=== PATIENT | female | born 1945 | race Caucasian/White ===

== ENCOUNTER → 2020-01-31 20:23 | Outpatient (CLI) | payer SELFPAY, OTHER | PROVIDERS: PCP Family Medicine; Referring Provider Psychiatry & Neurology Sleep Medicine; Visit Provider Psychiatry & Neurology Sleep Medicine | DX: G47.33 Obstructive sleep apnea (adult) (pediatric) (principal) | CPT/HCPCS: 95810 ==

== ENCOUNTER 2020-04-17 16:10 | Inpatient (IN) | payer OTHER, SELFPAY ==
[2020-04-17] VITALS (9 sets, daily range): BP systolic 149–164; BP diastolic 53–61; PULSE 73–84; RESP 16–23; TEMP 36.3–37.1; O2SAT 94–99; BMI 31.6; BMI 32.2
--- NOTE | 2020-04-17 16:47 | EKG12_ITS ---
Test Reason : Blood Pressure : / mmHG Vent. Rate : 072 BPM Atrial Rate : 072 BPM P-R Int : 194 ms QRS Dur : 088 ms QT Int : 434 ms P-R-T Axes : 070 045 091 degrees QTc Int : 475 ms Normal sinus rhythm Nonspecific ST and T wave abnormality Abnormal ECG Confirmed by ALONA DICKERSON, NATIVIDAD ([id number]), associate editor KLARISSA SHELL ([id number]) on 04/19/2020 2:08:32 PM Referred By: YANICK Confirmed By:BEN SAGE MD
[2020-04-17] MEDS: Ondansetron 4 MG/2 ML Vial IV (17:14)
[2020-04-17 17:23] LABS: Absolute Lymphocyte Count 0.43 X10^3/uL (0.83-4.51); Basophil# 0.02 X10^3/uL; Basophil% 0.4 % (0-1); Eosinophil# 0.15 X10^3/uL; Eosinophils% 2.9 % (0-5); Hematocrit 26.5 % (37-47); Hemoglobin 7.7 g/dL (12.0-15.0); Lymphocyte # 0.43 X10^3/ul (4.0); Lymphocyte % 8.2 % (19-41); Mean Corp Hgb Conc 29.1 g/dL (32-36); Mean Corpuscular Hgb 25.2 pg (27.0-32.0); Mean Corpuscular Volume 86.6 fL (81-99); Mean Platelet Vol. 9.8 fl (6.2-12.0); Monocyte# 0.67 X10^3/uL; Monocyte% 12.7 % (0-10); NRBC Flagged by Analyzer 0 % (0-5); Neutrophil # 3.97 X10^3/uL (2.7-7.7); Neutrophil % 75.4 % (47-70); POSITIVE DIFFERENTIAL YES; Platelet Count 294 K/mm3 (150-450); RBC Distribution Width CV 14.4 % (11.6-14.6); RBC Distribution Width SD 45.5 fl (35.1-43.9); Red Blood Count 3.06 M/mm3 (4.2-5.4); White Blood Count 5.3 K/mm3 (4.4-11.0)
--- NOTE | 2020-04-17 17:30 | RAD_ITS ---
STUDY: X-RAY CHEST REASON FOR EXAM: Female, 74 years old. SOB FOR WEEKS,N/V. TECHNIQUE: AP portable COMPARISON: 04/26/2012 FINDINGS: Lungs are hyperinflated and there is prominence of interstitial markings most pronounced in the lower lobes.. There is no demonstrated pleural abnormality. Heart is enlarged. Normal mediastinum and lex. Normal visualized pulmonary arteries. Mildly calcified aortic arch and descending thoracic aorta. Dorsal spine and shoulders demonstrate degenerative change.. Normal visualized ribs, and clavicles.. There is no demonstrated abnormality of the visualized soft tissue structures of the upper abdomen. RAD/Chest 1 View (Portable) IMPRESSION: COPD and superimposed ASHD. Cannot definitively exclude coexisting inflammatory disease in the lower lobes. Clinical correlation recommended Electronically Signed: Terrence Encarnacion MD at 18:06 EST , Service support ,
[2020-04-17 17:31] LABS: Differential Indicated SCAN CRITERIA MET
[2020-04-17 17:38] LABS: Mucous, Urine 0 SEEN /hpf (<or=2+); Red Blood Cells-Urine 0 SEEN /hpf (0-5)
[2020-04-17 17:44] LABS: AST(SGOT) 12 U/L (15-37); Alanine Aminotransfer ALT/SGPT 14 U/L (13-56); Albumin, Serum 3.3 g/dL (3.2-5.0); Alkaline Phosphatase 67 U/L (45-117); Anion Gap 8 (5-15); BUN 36 mg/dL (7-18); BUN/Creat Ratio 14.3 RATIO (10-20); Calcium,Total 9.3 mg/dL (8.5-10.1); Chloride 109 mmol/L (98-107); Creatinine, Serum 2.51 mg/dL (0.55-1.02); EST Glomerular Filtration Rate 20 mL/min (>60); Est Glom Filt Rate - Afr Amer 24 mL/min (>60); Estimated Creatinine Clearance 18.97 ml/min; Globulin 3.3 g/dL (2.2-4.2); Glucose 122 mg/dL (74-106); Potassium 3.4 mmol/L (3.5-5.1); Protein, Total 6.6 g/dL (6.4-8.2); Sodium Level 140 mmol/L (136-145)
[2020-04-17 18:05] LABS: Color, Urine Yellow (Yellow); Glucose, Dipstick Normal (Normal); Ketone-Dipstick Negative (Negative); Leukocyte Esterase-Dipstick 500 /ul (Negative); Nitrite-Dipstick Negative (Negative); Occult Blood-Urine 10 /ul (Negative); Protein-Dipstick 100 mg/dl (Negative); Urine Bilirubin Dipstick Negative (Negative); Urine Clarity Sl. Cloudy (Clear); Urine Urobilinogen Normal (Normal)
[2020-04-17 18:29] LABS: Bacteria 2+ /hpf (None Seen); Squamous Epithelial Cells - UA 0-5 SEEN /hpf (5-10); White Blood Cells 50-100 SEEN /hpf (0-5)
[2020-04-17 18:32] LABS: Anisocytosis 2+; Crenated RBC 2+; Hypochromasia 1+; Ovalocyte 1+
[2020-04-17 18:33] LABS: Platelet Estimate ADEQUATE (ADEQ); Schistocytes 1+
[2020-04-17] MEDS: Ceftriaxone 1 GM/50 ML BAG IV (19:06)
--- NOTE | 2020-04-17 19:07 | ED.VISSUMM ---
- ER Visit Summary Date of Service: 04/17/20 Chief Complaint: Shortness of breath, generalized weakness History of Present Illness: The patient is a 74 F presenting with shortness of breath, generalized weakness. Patient states this has been ongoing for the past several weeks but progressively worsening. She states that she has been nauseated with generalized weakness and fatigue. She states she started to feel as she did before her kidney transplant in 2009. She was advised by her casting inspector to come to the ED. She also has a history of A. fib and is not on anticoagulants. She denies chest pain. She has shortness of breath, nausea, vomiting, diarrhea. She denies blood in her stool. Denies fever. Denies other complaints. Physical Examination: Vitals are stable. Patient is afebrile. Alert no acute distress. HEENT exam is unremarkable. Neck is supple. Lungs are clear and equal bilaterally. Heart is regular rate and rhythm. Abdomen is soft nontender nondistended. Extremities are unremarkable. Skin is warm and dry. Pallor No focal neurologic deficit. Remainder of exam is unremarkable. ] Emergency Department Course and Treatment: EKG is sinus rhythm with no acute ischemic changes. Chest x-ray shows COPD, ASHD. CBC shows hemoglobin 7.7. Chemistries show glucose 122, BUN 36, creatinine 2.51. Urinalysis shows 50-100 white blood cells, 2+ bacteria. Troponin is negative. Urine culture was sent. Covid is negative. She is given Rocephin IV. She states her previous creatinine has been 1.5 a few months ago. Discussed with the hospitalist for admission. Disposition: Admission Impression: Acute on chronic kidney injury, UTI, anemia This note was generated with [employer] dictation software. It may contain incorrect words, spelling, and punctuation that were not noted in review of the chart prior to signing ED Disposition - Plan for ED Patient: Referrals: Hamilton Armstrong MD [Primary Care Provider] -
[2020-04-17] MEDS: 0.9% Normal Saline 1,000 ML 75 ML IV (20:45)
--- NOTE | 2020-04-17 20:56 | PCM.HP.STD ---
Problem List (1) Generalized weakness Status: Acute (2) Shortness of breath Status: Acute History of Present Illness Date of Admission: 04/17/20 Chief Complaint: Generalized weakness, shortness of breath The patient is a 74 year old F seen in the emergency room at [facility] with a chief complaint of shortness of breath and generalized weakness, this is been going on for the past several weeks but she feels that she is so tired she cannot do activities of daily living. Patient had a history of kidney transplant in 2009, she follows up with a operating room manager on a chronic basis. Patient also has a history of iron deficiency anemia and has had blood transfusions in the past. She follows up with a oncologist (Dr. Arroyo) regarding her anemia. Work-up in the emergency room included an EKG which showed her to be in sinus rhythm with no ischemic changes, chest x-ray was read out as showing possible COPD and atherosclerotic heart disease, CBC was remarkable for hemoglobin of 7.7, chemistry showed a glucose of 122, BUN of 36, creatinine of 2.51. Urinalysis showed 50-100 white blood cells and +2 bacteria. COVID-19 test was negative, troponin was unremarkable. Patient's pulse ox on room air was 98. [facility] for acute cystitis, anemia, and generalized weakness. I also believe that she has a component of acute kidney injury-patient takes a diuretic at home-I will administer fluids at a low rate while she is here. Patient will be given Rocephin for her cystitis. Patient will also need a blood transfusion of 2 units to see if this helps and I will give her an infusion of Venofer. Finally, patient will be seen by PT and OT Past Medical History Allergies No Known Allergies Allergy (Verified 04/17/20 20:12) Home Medications: Ambulatory Orders Medication Instructions Recorded Magnesium Oxide [Mag-Ox 400] 400 mg PO DAILY 01/19/14 Mycophenolate Mofetil [Cellcept] 750 mg PO BID 01/19/14 Simvastatin [Zocor] 20 mg PO QHS 01/19/14 Amlodipine [Norvasc] 10 mg PO DAILY 04/17/20 Chlorthalidone 25 mg PO DAILY 04/17/20 Cholecalciferol (Vitamin D3) 2,000 unit PO DAILY 04/17/20 [Vitamin D3] Ferrous Sulfate 325 mg PO DAILY 04/17/20 Metoprolol Tartrate 12.5 mg PO BID 04/17/20 Potassium Chloride [Klor-Con M10] 10 meq PO DAILY 04/17/20 Prednisone 5 mg PO DAILY 04/17/20 Sulfamethoxazole/Trimethoprim 1 tab PO DAILY 04/17/20 [Sulfamethoxazole-Tmp Ss Tablet] Tacrolimus 0.5 mg PO DAILY 04/17/20 Tacrolimus 1 mg PO DAILY 04/17/20 Surgical History: cataract, - - Kidney transplantation 2009 Psychiatric History: No pertinent psych hx [employer] History: No pertinent [employer] history Lives: Spouse/ Significant Other Smoking Status: Never smoker Tobacco Use: Non-smoker Alcohol: None Drugs: None - *Family History Maternal History Items: Cancer, Renal Disease Paternal History Items: Stroke, - Review of Systems Constitutional: Reports: Weakness, Fatigue. Denies: Anorexia, Chills, Fever, Night Sweats, Weight Change Eyes: Denies: Cataracts, Conjunctivae Inflammation, Double vision HEENT: Denies: Difficulty Swallowing, Dysphasia, Ear Pain, Eye Pain, Hearing Changes, Nasal bleeding, Nasal Congestion, Post Nasal Drip Cardiovascular: Denies: Chest Pain, Claudication, Chest Pressure, Chest Tightness, Edema, Palpitations Respiratory: Reports: Shortness of Breath, Shortness of breath upon exertion. Denies: Cough, Hemoptysis, Pleuritic Pain, Shortness of breath at rest, Sputum production, Wheezing Gastrointestinal: Denies: Abdominal Pain, Constipation, Diarrhea, Dyspepsia, Hematemesis, Hematochezia, Nausea, Melena, Vomiting Genitourinary: Denies: Dysuria, Frequency, Hematuria, Hesitancy, Nocturia, Retention, Urgency Musculoskeletal: Denies: Foot Pain, Hand Pain, Joint Pain, Joint stiffness, Joint swelling, Joint Tenderness, Leg Pain Skin: Denies: Dryness, Jaundice, Pruritis, Rash Neurological: Denies: Blurred vision, Double vision, Change in Speech, Slurred speech, Difficulty swallowing, Focal weakness, Headaches, Incoordination, Numbness, Tingling Psychiatric: Denies: Anxiety, Depression, Homicidal Ideations, Suicidal Ideations Endocrine: Denies: Change in Body Habitus, Heat/ Cold Intolerance, Polydipsia, Polyuria Hematologic/ Lymphatic: Reports: Anemia, Hx of blood transfusion. Denies: Adenopathy, Easy Bruising, Easy Bleeding, Petechiae, Purpura VTE Information - Inpt Only VTE Present on Admission: No VTE Mechan Device Prophylaxis: None VTE Pharm Prophylaxis ordered?: No Reason prophylaxis not ordered:: Treatment Not Indicated - Patient is in observation status and is expected to be discharged within 24 hours - Physical Exam Vitals/I&O's: Vital Signs Temp Pulse Resp BP Pulse Ox 98.6 F 79 18 164/59 H 98 04/17/20 20:11 04/17/20 20:11 04/17/20 20:11 04/17/20 20:11 04/17/20 20:11 Oxygen Delivery Method Room Air Weight: 90.5 kg Body Mass Index (BMI) 32.2 Intake and Output for Last 24 Hours 04/15/20 04/16/20 04/17/20 23:59 23:59 23:59 Intake Total 52.5 / 52.5 Balance 52.5 / 52.5 General: Alert, Oriented x3, Cooperative, No apparent distress, Well developed, Well nourished HEENT: Atraumatic, PERRLA, EOMI, Normocephalic Oral: Moist Mucosa Neck: Supple, No JVD, Negative Carotid Bruits, Trachea Midline, Thyroid Normal Size and Texture Lungs: Clear to auscultation, Normal air movement, No rhonchi, No wheeze, No rales Cardiovascular: Regular rate, Regular Rhythm, Normal S1, Normal S2, No murmurs, PMI Normal, No rub noted, No Gallop Abdomen: Bowel Sounds Present, Soft, Non Tender, Non-Distended, No hernias noted Extremities: No clubbing, No cyanosis, No edema, Capillary Refill Less than 3 Seconds Skin: No rashes, No breakdown Musculoskeletal: No Tenderness to Palpation of Joints or Extremities Neurological: Cranial nerves II-XII grossly intact, Neuro grossly intact, Sensory exam intact to light touch and pain, Coordination normal Psych/Mental Status: Normal Affect, Appropriate, Alert and oriented to time, place, person, mood and affect Microbiology Past 72 Hours 04/17/20 17:06 Mucosa - Nose SARS-CoV-2 Antigen (Rapid) - Final Laboratory Results 04/17/20 17:00: WBC 5.3, RBC 3.06 L, Hgb 7.7 L, Hct 26.5 L, MCV 86.6, MCH 25.2 L, MCHC 29.1 L, RDW Std Deviation 45.5 H, RDW Coeff of Rhys 14.4, Plt Count 294, MPV 9.8, Immature Gran % (Auto) 0.400, Neut % (Auto) 75.4 H, Lymph % (Auto) 8.2 L, [place] % (Auto) 12.7 H, Eos % (Auto) 2.9, Baso % (Auto) 0.4, Absolute Neuts (auto) 4.0, Absolute Lymphs (auto) 0.43 L, Nucleated RBC % 0, Differential Comment COMMENT, Platelet Estimate ADEQUATE, Hypochromasia 1+, Anisocytosis 2+, Ovalocytes 1+, Crenated Cell 2+, Schistocytes 1+ 04/17/20 17:00: Sodium 140, Potassium 3.4 L, Chloride 109 H, Carbon Dioxide 23.0, Anion Gap 8, BUN 36 H, Creatinine 2.51 H, Estim Creat Clear Calc 18.97, Est GFR (MDRD) Af Amer 24 L, Est GFR (MDRD) Non-Af 20 L, BUN/Creatinine Ratio 14.3, Glucose 122 H, Calcium 9.3, Total Bilirubin 0.30, AST 12 L, ALT 14, Alkaline Phosphatase 67, Troponin I < 0.015, Total Protein 6.6, Albumin 3.3, Globulin 3.3, Albumin/Globulin Ratio 1.0 04/17/20 17:05: Urine Color Yellow, Urine Clarity Sl. Cloudy, Urine pH 5.0, Ur Specific [place] 1.020, Urine Protein 100 H, Urine Glucose (UA) Normal, Urine Ketones Negative, Urine Occult Blood 10 H, Urine Nitrite Negative, Urine Bilirubin Negative, Urine Urobilinogen Normal, Ur Leukocyte Esterase 500 H, Urine RBC 0 SEEN, Urine WBC 50-100 SEEN, Ur Squamous Epith Cells 0-5 SEEN, Urine Bacteria 2+, Urine Mucus 0 SEEN 04/17/20 20:22: Blood Type Pending, Antibody Screen Pending, Crossmatch See Detail Current Medications Amlodipine Besylate (Amlodipine 10 Mg Tablet) 10 mg PO DAILY DAVID Atorvastatin Calcium (Atorvastatin Calcium 10 Mg Tablet) 10 mg PO QHS DAVID Sodium Chloride () 1,000 mls @ 75 mls/hr IV .[id number] DAVID Last Infusion: 04/17/20 20:47 Dose: 0 mls/hr Documented by: Ceftriaxone Sodium (Rocephin) 1 gm in 50 mls @ 100 mls/hr IV Q24 DAVID Sodium Chloride () 250 mls @ 15 mls/hr IV .[id number] PRN PRN Reason: Saline Flush Sodium Chloride () 250 mls @ 15 mls/hr IV .[id number] PRN PRN Reason: Additional IVPB Infusion Ferric Sodium Gluconate Complex 250 mg/ Sodium Chloride 270 mls @ 135 mls/hr IV X1 ONE Stop: 04/17/20 22:29 Last Admin: 04/17/20 20:45 Dose: 135 mls/hr Documented by: Metoprolol Tartrate (Metoprolol Tartrate 25 Mg Tablet) 12.5 mg PO BID DAVID Mycophenolate Mofetil (Mycophenolate Mofetil 250 Mg Capsule) 750 mg PO BID DAVID Ondansetron HCl (Ondansetron 4 Mg/2 Ml Vial) 4 mg IV Q8H PRN PRN PRN Reason: NAUSEA/VOMITING Prednisone (Prednisone 5 Mg Tablet) [facility] PO [facility]ILY[facility] Sodium Chloride (0.9% Saline Lock 10 Ml Syringe) 10 - 40 ml IV UD PRN PRN Reason: SALINE FLUSH Tacrolimus (Tacrolimus 0.5 Mg Capsule) 1 mg PO DAILY DAVID Tacrolimus (Tacrolimus 0.5 Mg Capsule) 0.5 mg PO QHS DAVID Trimethoprim/Sulfamethoxazole (Smz/Tmp Ds Tablet) 0.5 tablet PO DAILYCM [facility] Assessment/Plan All Active Problems Generalized weakness (Acute) Shortness of breath (Acute) #1 generalized weakness-secondary to anemia, probable acute kidney injury, patient will be placed in observation status on [facility], she will be seen by PT and OT #2 chronic anemia-iron deficient-patient will be transfused 2 units of packed red blood cells, she will be given an infusion of Venofer #3 acute cystitis-patient was placed on Rocephin, urine culture was obtained #4 acute kidney injury on a backdrop of chronic renal disease-again I have decided to take the patient off her diuretic which she takes at home (she states she uses it for leg swelling) and administered fluids at a low rate, BMP will be rechecked #5 hypokalemia-mild, potassium chloride will be given #6 essential hypertension patient will remain on her home meds, some of the patient's lower extremity edema is probably secondary to use of Norvasc. #7 hyperlipidemia-patient is on Zocor #8 past history of renal transplant 2009-patient is on antirejection medications and these will be continued. OBSV E&M: [id number] Initial observation care L3
[2020-04-17] MEDS: Mycophenolate Mofetil 250 MG Capsule 750 MG PO (21:08)
[2020-04-17] MEDS: Tacrolimus 0.5 MG Capsule PO (21:08)
[2020-04-17] MEDS: Atorvastatin Calcium 10 MG Tablet PO (21:09)
[2020-04-17] MEDS: Metoprolol Tartrate 25 MG Tablet 12.5 MG PO (21:12)
[2020-04-18] VITALS (16 sets, daily range): BP systolic 139–168; BP diastolic 51–82; PULSE 70–88; RESP 14–18; TEMP 36.8–37.4; O2SAT 92–97
[2020-04-18 08:00] LABS: Absolute Lymphocyte Count 0.48 X10^3/uL (0.83-4.51); Absolute Neutrophil Count 3.7 X10^3/uL (2.0-7.7); Basophil# 0.02 X10^3/uL; Basophil% 0.4 % (0-1); Eosinophil# 0.14 X10^3/uL; Eosinophils% 2.8 % (0-5); Hematocrit 30.8 % (37-47); Hemoglobin 9.2 g/dL (12.0-15.0); Lymphocyte # 0.48 X10^3/ul (4.0); Lymphocyte % 9.5 % (19-41); Mean Corp Hgb Conc 29.9 g/dL (32-36); Monocyte# 0.65 X10^3/uL; Monocyte% 12.9 % (0-10); NRBC Flagged by Analyzer 0 % (0-5); Neutrophil # 3.73 X10^3/uL (2.7-7.7); Neutrophil % 73.8 % (47-70); POSITIVE DIFFERENTIAL YES; Platelet Count 285 K/mm3 (150-450); RBC Distribution Width CV 14.1 % (11.6-14.6); RBC Distribution Width SD 44.9 fl (35.1-43.9); Red Blood Count 3.54 M/mm3 (4.2-5.4); White Blood Count 5.1 K/mm3 (4.4-11.0)
[2020-04-18 08:01] LABS: Differential Indicated SCAN CRITERIA MET
[2020-04-18 08:15] LABS: Anion Gap 8 (5-15); BUN 31 mg/dL (7-18); BUN/Creat Ratio 14.2 RATIO (10-20); Chloride 112 mmol/L (98-107); Creatinine, Serum 2.19 mg/dL (0.55-1.02); EST Glomerular Filtration Rate 23 mL/min (>60); Est Glom Filt Rate - Afr Amer 28 mL/min (>60); Estimated Creatinine Clearance 21.74 ml/min; Glucose 109 mg/dL (74-106); Potassium 3.7 mmol/L (3.5-5.1); Sodium Level 140 mmol/L (136-145)
[2020-04-18 08:26] LABS: Acanthocytes 1+; Hypochromasia 1+; Ovalocyte RARE; Platelet Estimate ADEQUATE (ADEQ)
[2020-04-18] MEDS: predniSONE 5 MG Tablet PO ×2 (08:52→16:40)
[2020-04-18] MEDS: Smz/Tmp Ds Tablet 0.5 TABLET PO (09:10)
[2020-04-18] MEDS: amLODIPine 10 MG Tablet PO (09:12)
[2020-04-18] MEDS: Mycophenolate Mofetil 250 MG Capsule 750 MG PO ×2 (09:17→21:19)
[2020-04-18] MEDS: Metoprolol Tartrate 25 MG Tablet 12.5 MG PO ×2 (09:18→21:20)
[2020-04-18] MEDS: Tacrolimus 0.5 MG Capsule 1 MG PO (09:22)
[2020-04-18] MEDS: Ceftriaxone 1 GM/50 ML BAG IV (10:59)
[2020-04-18] MEDS: predniSONE 10 MG Tablet PO (11:04)
--- NOTE | 2020-04-18 12:48 | PN_ITS ---
<Danitza Flores SHOWER ROOM ATTENDANT - Last Filed: 04/18/20 13:08> Patient Problems: Active and Suspected Problems Generalized weakness (Acute) Shortness of breath (Acute) Subjective: Patient seen and examined. States she continues to feel weak and reports nausea without emesis. Complains of left foot pain which she states feels like gout. Denies fever, chills. - Physical Exam Vitals/I&O's: Vital Signs Temp Pulse Resp BP Pulse Ox 98.2 F 73 14 152/57 H 95 04/18/20 08:27 04/18/20 09:18 04/18/20 08:27 04/18/20 08:27 04/18/20 08:27 Oxygen Delivery Method Room Air Weight: 199 lb 8.293 oz Body Mass Index (BMI) 32.2 Intake and Output for Last 24 Hours 04/16/20 04/17/20 04/18/20 23:59 23:59 23:59 Intake Total 322.5 / 522.5 1250 / 1250 Balance 322.5 / 522.5 1250 / 1250 General: Alert, Oriented x3, Cooperative HEENT: Atraumatic, PERRLA, EOMI, Normocephalic Neck: Supple, No JVD, Negative Carotid Bruits Lungs: Clear to auscultation, Normal air movement Cardiovascular: Regular rate, No murmurs Abdomen: Bowel Sounds Present, Soft, Non Tender, Non-Distended Extremities: No clubbing, No cyanosis, No edema, Capillary Refill Less than 3 Seconds Skin: No rashes, No breakdown Musculoskeletal: No Tenderness to Palpation of Joints or Extremities Neurological: Cranial nerves II-XII grossly intact, Neuro grossly intact Psych/Mental Status: Normal Affect, Appropriate Microbiology Past 72 Hours 04/17/20 17:00 Urine, Clean Catch Urine Culture - Preliminary GNR lactose electric meter setter 04/17/20 17:06 Mucosa - Nose SARS-CoV-2 Antigen (Rapid) - Final Laboratory Results 04/17/20 17:00: WBC 5.3, RBC 3.06 L, Hgb 7.7 L, Hct 26.5 L, MCV 86.6, MCH 25.2 L , MCHC 29.1 L, RDW Std Deviation 45.5 H, RDW Coeff of Rhys 14.4, Plt Count 294, MPV 9.8, Immature Gran % (Auto) 0.400, Neut % (Auto) 75.4 H, Lymph % (Auto) 8.2 L, Bent % (Auto) 12.7 H, Eos % (Auto) 2.9, Baso % (Auto) 0.4, Absolute Neuts (auto) 4.0, Absolute Lymphs (auto) 0.43 L, Nucleated RBC % 0, Differential Comment COMMENT, Platelet Estimate ADEQUATE, Hypochromasia 1+, Anisocytosis 2+, Ovalocytes 1+, Crenated Cell 2+, Schistocytes 1+ 04/17/20 17:00: Sodium 140, Potassium 3.4 L, Chloride 109 H, Carbon Dioxide 23.0, Anion Gap 8, BUN 36 H, Creatinine 2.51 H, Estim Creat Clear Calc 18.97, Est GFR (MDRD) Af Amer 24 L, Est GFR (MDRD) Non-Af 20 L, BUN/Creatinine Ratio 14.3, Glucose 122 H, Calcium 9.3, Total Bilirubin 0.30, AST 12 L, ALT 14, Alkaline Phosphatase 67, Troponin I < 0.015, Total Protein 6.6, Albumin 3.3, Globulin 3.3, Albumin/Globulin Ratio 1.0 04/17/20 17:05: Urine Color Yellow, Urine Clarity Sl. Cloudy, Urine pH 5.0, Ur Specific [place] 1.020, Urine Protein 100 H, Urine Glucose (UA) Normal, Urine Ketones Negative, Urine Occult Blood 10 H, Urine Nitrite Negative, Urine Bilirubin Negative, Urine Urobilinogen Normal, Ur Leukocyte Esterase 500 H, Urine RBC 0 SEEN, Urine WBC 50-100 SEEN, Ur Squamous Epith Cells 0-5 SEEN, Urine Bacteria 2+, Urine Mucus 0 SEEN 04/17/20 20:22: Blood Type A POSITIVE, Antibody Screen NEGATIVE, Crossmatch See Detail 04/18/20 06:50: WBC 5.1, RBC 3.54 L, Hgb 9.2 L, Hct 30.8 L, MCV 87.0, MCH 26.0 L , MCHC 29.9 L, RDW Std Deviation 44.9 H, RDW Coeff of Rhys 14.1, Plt Count 285, MPV 10.0, Immature Gran % (Auto) 0.600, Neut % (Auto) 73.8 H, Lymph % (Auto) 9.5 L, Bent % (Auto) 12.9 H, Eos % (Auto) 2.8, Baso % (Auto) 0.4, Absolute Neuts (auto) 3.7, Absolute Lymphs (auto) 0.48 L, Nucleated RBC % 0, Platelet Estimate ADEQUATE, Hypochromasia 1+, Ovalocytes RARE, Acanthocytes (Spur) 1+ 04/18/20 06:50: Sodium 140, Potassium 3.7, Chloride 112 H, Carbon Dioxide 20.0 L , Anion Gap 8, BUN 31 H, Creatinine 2.19 H, Estim Creat Clear Calc 21.74, Est GFR (MDRD) Af Amer 28 L, Est GFR (MDRD) Non-Af 23 L, BUN/Creatinine Ratio 14.2, Glucose 109 H, Calcium 9.0 Current Medications Amlodipine Besylate (Amlodipine 10 Mg Tablet) 10 mg PO DAILY [facility] Last Admin: 04/18/20 09:12 Dose: 10 mg Documented by: Atorvastatin Calcium (Atorvastatin Calcium 10 Mg Tablet) 10 mg PO QHS [facility] Last Admin: 04/17/20 21:09 Dose: 10 mg Documented by: Sodium Chloride () 1,000 mls @ 75 mls/hr IV .[id number] [facility] Last Infusion: 04/18/20 06:00 Dose: 75 mls/hr Documented by: Ceftriaxone Sodium (Rocephin) 1 gm in 50 mls @ 100 mls/hr IV Q24 [facility] Last Infusion: 04/18/20 11:29 Dose: Infused Documented by: Sodium Chloride () 250 mls @ 15 mls/hr IV .[id number] PRN PRN Reason: Saline Flush Sodium Chloride () 250 mls @ 15 mls/hr IV .[id number] PRN PRN Reason: Additional IVPB Infusion Metoprolol Tartrate (Metoprolol Tartrate 25 Mg Tablet) 12.5 mg PO BID [facility] Last Admin: 04/18/20 09:18 Dose: 12.5 mg Documented by: Mycophenolate Mofetil (Mycophenolate Mofetil 250 Mg Capsule) 750 mg PO BID [facility] Last Admin: 04/18/20 09:17 Dose: 750 mg Documented by: Nutritional Formula (Lactose Free) (Ensure Enlive 120 Ml Liquid) 120 ml PO 4X/D AY [facility] Last Admin: 04/18/20 09:25 Dose: 120 ml Documented by: Nystatin (Nystatin Powder 15gm Bottle) 1 applic TOPICAL BID [facility]; Protocol Ondansetron HCl (Ondansetron 4 Mg/2 Ml Vial) 4 mg IV Q8H PRN PRN PRN Reason: NAUSEA/VOMITING Prednisone [facility] 5 Mg [facility] Admin: 04/18/20 08:52 Dose: 5 mg Documented by: Sodium Chloride (0.9% Saline Lock 10 Ml Syringe) 10 - 40 ml IV UD PRN PRN Reason: SALINE FLUSH Tacrolimus (Tacrolimus 0.5 Mg Capsule) 1 mg PO DAILY [facility] Last Admin: 04/18/20 09:22 Dose: 1 mg Documented by: Tacrolimus (Tacrolimus 0.5 Mg Capsule) 0.5 mg PO QHS [facility] Last Admin: 04/17/20 21:08 Dose: 0.5 mg Documented by: Trimethoprim/Sulfamethoxazole (Smz/Tmp Ds Tablet) [facility] Admin: 04/18/20 09:10 Dose: 0.5 tablet Documented by: Medical Necessity - Tobacco Use Smoking Status: Never smoker Tobacco Use: Non-smoker Assessment/Plan All Active Problems Generalized weakness (Acute) Shortness of breath (Acute) 1. Acute cystitis-IV Rocephin. Culture pending. 2. Acute normocytic anemia-status post 2 units PRBC. No previous labs since 2011, suspect component of chronic anemia. Patient received IV iron on admission. Check stool for occult blood. PPI twice daily. Trend CBC. 3. Acute kidney injury on chronic kidney disease, history of renal transplant 2009-acute kidney injury improved with IV fluids. Trend BMP. Continue antirejection regimen. 4. Debility-PT/OT. 5. Hypertension-stable, continue amlodipine, metoprolol. 6. Hyperlipidemia-continue statin. 7. Gout-uses as needed prednisone at home. Will begin prednisone 20 mg daily until symptoms improve and then resume home daily prednisone regimen. DVT prophylaxis-SCDs This patient was seen by GRANT Hopper under the supervision of Dr. Burgess. <Em Burgess - Last Filed: 04/18/20 15:48> - Physical Exam Vitals/I&O's: Vital Signs Temp Pulse Resp BP Pulse Ox 98.4 F 78 18 139/59 H 92 04/18/20 14:40 04/18/20 14:40 04/18/20 14:40 04/18/20 14:40 04/18/20 14:40 Oxygen Delivery Method Room Air Weight: 199 lb 8.293 oz Body Mass Index (BMI) 32.2 Intake and Output for Last 24 Hours 04/16/20 04/17/20 04/18/20 23:59 23:59 23:59 Intake Total 322.5 / 522.5 1849 Balance 322.5 / 522.5 1849 Microbiology Past 72 Hours 04/17/20 17:00 Urine, Clean Catch Urine Culture - Preliminary GNR lactose electric meter setter 04/17/20 17:06 Mucosa - Nose SARS-CoV-2 Antigen (Rapid) - Final Laboratory Results 04/17/20 17:00: WBC 5.3, RBC 3.06 L, Hgb 7.7 L, Hct 26.5 L, MCV 86.6, MCH 25.2 L , MCHC 29.1 L, RDW Std Deviation 45.5 H, RDW Coeff of Rhys 14.4, Plt Count 294, MPV 9.8, Immature Gran % (Auto) 0.400, Neut % (Auto) 75.4 H, Lymph % (Auto) 8.2 L, Bent % (Auto) 12.7 H, Eos % (Auto) 2.9, Baso % (Auto) 0.4, Absolute Neuts (auto) 4.0, Absolute Lymphs (auto) 0.43 L, Nucleated RBC % 0, Differential Comment COMMENT, Platelet Estimate ADEQUATE, Hypochromasia 1+, Anisocytosis 2+, Ovalocytes 1+, Crenated Cell 2+, Schistocytes 1+ 04/17/20 17:00: Sodium 140, Potassium 3.4 L, Chloride 109 H, Carbon Dioxide 23.0, Anion Gap 8, BUN 36 H, Creatinine 2.51 H, Estim Creat Clear Calc 18.97, Est GFR (MDRD) Af Amer 24 L, Est GFR (MDRD) Non-Af 20 L, BUN/Creatinine Ratio 14.3, Glucose 122 H, Calcium 9.3, Total Bilirubin 0.30, AST 12 L, ALT 14, Alkaline Phosphatase 67, Troponin I < 0.015, Total Protein 6.6, Albumin 3.3, Globulin 3.3, Albumin/Globulin Ratio 1.0 04/17/20 17:05: Urine Color Yellow, Urine Clarity Sl. Cloudy, Urine pH 5.0, Ur Specific [place] 1.020, Urine Protein 100 H, Urine Glucose (UA) Normal, Urine Ketones Negative, Urine Occult Blood 10 H, Urine Nitrite Negative, Urine Bilirubin Negative, Urine Urobilinogen Normal, Ur Leukocyte Esterase 500 H, Urine RBC 0 SEEN, Urine WBC 50-100 SEEN, Ur Squamous Epith Cells 0-5 SEEN, Urine Bacteria 2+, Urine Mucus 0 SEEN 04/17/20 20:22: Blood Type A POSITIVE, Antibody Screen NEGATIVE, Crossmatch See Detail 04/18/20 06:50: WBC 5.1, RBC 3.54 L, Hgb 9.2 L, Hct 30.8 L, MCV 87.0, MCH 26.0 L , MCHC 29.9 L, RDW Std Deviation 44.9 H, RDW Coeff of Rhys 14.1, Plt Count 285, MPV 10.0, Immature Gran % (Auto) 0.600, Neut % (Auto) 73.8 H, Lymph % (Auto) 9.5 L, Bent % (Auto) 12.9 H, Eos % (Auto) 2.8, Baso % (Auto) 0.4, Absolute Neuts (auto) 3.7, Absolute Lymphs (auto) 0.48 L, Nucleated RBC % 0, Platelet Estimate ADEQUATE, Hypochromasia 1+, Ovalocytes RARE, Acanthocytes (Spur) 1+ 04/18/20 06:50: Sodium 140, Potassium 3.7, Chloride 112 H, Carbon Dioxide 20.0 L , Anion Gap 8, BUN 31 H, Creatinine 2.19 H, Estim Creat Clear Calc 21.74, Est GFR (MDRD) Af Amer 28 L, Est GFR (MDRD) Non-Af 23 L, BUN/Creatinine Ratio 14.2, Glucose 109 H, Calcium 9.0 Current Medications Amlodipine Besylate (Amlodipine 10 Mg Tablet) 10 mg PO DAILY [facility] Last Admin: 04/18/20 09:12 Dose: 10 mg Documented by: Atorvastatin Calcium (Atorvastatin Calcium 10 Mg Tablet) 10 mg PO QHS [facility] Last Admin: 04/17/20 21:09 Dose: 10 mg Documented by: Sodium Chloride () 1,000 mls @ 75 mls/hr IV .[id number] [facility] Last Infusion: 12/03/20 06:00 Dose: 75 mls/hr Documented by: Ceftriaxone Sodium (Rocephin) 1 gm in 50 mls @ 100 mls/hr IV Q24 [facility] Last Infusion: 04/18/20 11:29 Dose: Infused Documented by: Sodium Chloride () 250 mls @ 15 mls/hr IV .[id number] PRN PRN Reason: Saline Flush Sodium Chloride () 250 mls @ 15 mls/hr IV .[id number] PRN PRN Reason: Additional IVPB Infusion Metoprolol Tartrate (Metoprolol Tartrate 25 Mg Tablet) 12.5 mg PO BID [facility] Last Admin: 04/18/20 09:18 Dose: 12.5 mg Documented by: Mycophenolate Mofetil (Mycophenolate Mofetil 250 Mg Capsule) 750 mg PO BID [facility] Last Admin: 04/18/20 09:17 Dose: 750 mg Documented by: Nutritional Formula (Lactose Free) (Ensure Enlive 120 Ml Liquid) 120 ml PO 4X/DAY [facility] Last Admin: 04/18/20 15:16 Dose: Not Given Documented by: Nystatin (Nystatin Powder 15gm Bottle) 1 applic TOPICAL BID [facility]; Protocol Ondansetron HCl (Ondansetron 4 Mg/2 Ml Vial) 4 mg IV Q8H PRN PRN PRN Reason: NAUSEA/VOMITING Pantoprazole Sodium (Pantoprazole Sodium 40 Mg Tablet) 40 mg PO BID [facility] Prednisone (Prednisone 20 Mg Tablet) 20 mg PO DAILY@0800 [facility] Stop: 04/21/20 13:08 Sodium Chloride (0.9% Saline Lock 10 Ml Syringe) 10 - 40 ml IV UD PRN PRN Reason: SALINE FLUSH Tacrolimus (Tacrolimus 0.5 Mg Capsule) 1 mg PO DAILY [facility] Last Admin: 04/18/20 09:22 Dose: 1 mg Documented by: Tacrolimus (Tacrolimus 0.5 Mg Capsule) 0.5 mg PO QHS [facility] Last Admin: 04/17/20 21:08 Dose: 0.5 mg Documented by: Trimethoprim/Sulfamethoxazole (Smz/Tmp Ds Tablet) [facility] Last Admin: 04/18/20 09:10 Dose: 0.5 tablet Documented by: Assessment/Plan Patient seen by Danitza BURNS under my supervision Patient seen and examined. SHe was admitted with a complaint of weakness and found to have a UTI. She is also anemic, which is an acute on chronic anemia, and was transfused 2 units of pRBCs. She still complains of weakness and lethargy. She still complains of some nausea but has not been vomiting. She also says she feels like she has gout in her foot. Review of symptoms otherwise negative. She has remained hemodynamically stable. O/E: Vital Signs Temp Pulse Resp BP Pulse Ox 98.4 F 78 18 139/59 H 92 04/18/20 14:40 04/18/20 14:40 04/18/20 14:40 04/18/20 14:40 04/18/20 14:40 General: Alert, Oriented x3, Cooperative, lethargic HEENT: Atraumatic, PERRLA, EOMI, Normocephalic Neck: Supple, No JVD, Negative Carotid Bruits Lungs: Clear to auscultation, Normal air movement Cardiovascular: Regular rate, No murmurs Abdomen: Bowel Sounds Present, Soft, Non Tender, Non-Distended Extremities: No clubbing, No cyanosis, No edema, Capillary Refill Less than 3 Seconds Skin: No rashes, No breakdown Musculoskeletal: No Tenderness to Palpation of Joints or Extremities Neurological: Cranial nerves II-XII grossly intact, Neuro grossly intact Psych/Mental Status: Normal Affect, Appropriate Plan is continue IV Rocephin. Urine culture is pending. Patient states he follows up with hematology on account of her chronic anemia. She is on IV PPI and has been transfused 2 units of packed red blood cells. She is also receiving IV iron. HemoGlobin is up to 9.2 from 7.7 on admission. Give p.o. steroids for gout flareup. She has a history of renal transplant back in 2009. Creatinine was a bit elevated on admission and she has been hydrated with IV fluids. Elevation in creatinine has improved. Continue p.o. prednisone. Rest as per GRANT Hopper's notes which I have reviewed and endorsed. OBSV E&M: [id number] Subsequent observation care L2
[2020-04-18] MEDS: Acetaminophen 325 MG Tablet 650 MG PO (16:40)
[2020-04-18] MEDS: 0.9% Normal Saline 1,000 ML 75 ML IV (18:12)
[2020-04-18] MEDS: Nystatin Powder 15gm Bottle 1 APPLIC TOPICAL (21:19)
[2020-04-18] MEDS: Tacrolimus 0.5 MG Capsule PO (21:20)
[2020-04-18] MEDS: Pantoprazole Sodium 40 MG Tablet PO (21:20)
[2020-04-18] MEDS: Atorvastatin Calcium 10 MG Tablet PO (21:24)
[2020-04-19 02:35] VITALS: BP 140/55; PULSE 75; RESP 18; TEMP 36.8; O2SAT 92
[2020-04-19 06:44] LABS: Anion Gap 7 (5-15); BUN 30 mg/dL (7-18); Calcium,Total 8.8 mg/dL (8.5-10.1); Chloride 114 mmol/L (98-107); Creatinine, Serum 2.31 mg/dL (0.55-1.02); EST Glomerular Filtration Rate 22 mL/min (>60); Est Glom Filt Rate - Afr Amer 27 mL/min (>60); Estimated Creatinine Clearance 20.61 ml/min; Glucose 191 mg/dL (74-106); Potassium 4.2 mmol/L (3.5-5.1); Sodium Level 142 mmol/L (136-145)
[2020-04-19 06:47] LABS: Hematocrit 28.9 % (37-47); Hemoglobin 8.5 g/dL (12.0-15.0); Mean Corp Hgb Conc 29.4 g/dL (32-36); Mean Corpuscular Hgb 25.6 pg (27.0-32.0); Mean Platelet Vol. 9.8 fl (6.2-12.0); Platelet Count 277 K/mm3 (150-450); RBC Distribution Width CV 14.4 % (11.6-14.6); RBC Distribution Width SD 45.3 fl (35.1-43.9); Red Blood Count 3.32 M/mm3 (4.2-5.4); White Blood Count 6.4 K/mm3 (4.4-11.0)
[2020-04-19 08:26] VITALS: BP 146/49; PULSE 78; RESP 14; TEMP 36.9; O2SAT 93
[2020-04-19] MEDS: 0.9% Normal Saline 1,000 ML 75 ML IV ×2 (08:40→23:09)
[2020-04-19] MEDS: Smz/Tmp Ds Tablet 0.5 TABLET PO (08:40)
[2020-04-19] MEDS: Mycophenolate Mofetil 250 MG Capsule 750 MG PO ×2 (08:43→21:49)
[2020-04-19 08:46] VITALS: BP 146/49; PULSE 78
[2020-04-19] MEDS: Metoprolol Tartrate 25 MG Tablet 12.5 MG PO ×2 (08:46→21:48)
[2020-04-19] MEDS: Nystatin Powder 15gm Bottle 1 APPLIC TOPICAL ×2 (08:48→21:52)
[2020-04-19] MEDS: amLODIPine 10 MG Tablet PO (08:49)
[2020-04-19] MEDS: Pantoprazole Sodium 40 MG Tablet PO ×2 (08:50→21:48)
[2020-04-19] MEDS: Tacrolimus 0.5 MG Capsule 1 MG PO (08:51)
--- NOTE | 2020-04-19 10:20 | CASEMGMT ---
RN ALEXA Face to Face with patient for initial transition planning/care coordination assessment. RN CM introduced self and role at [facility]. Patient lying in bed, alert and oriented. Patient willing to participate in assessment and is able to answer all questions appropriately. Care providers, pharmacy, and demographics verified. Patient wishes to discharge home, denies need for home health at this time. Patient states she has no further needs or concerns at this time. CM to follow for discharge planning needs that may arise. PCP: Nathaniel Specialists: Cruz sampler and test preparer Preferred Pharmacy: [facility] Insurance: [facility] [place] Prescription Benefit: none Living Will/HPOA: Living will only LNOK: Living Arrangements: patient lives with in a single story home with 1 step to enter. Patient states she is independent at home. Transportation: Driving service DME/HHC: Patient states she has raised toilet, grab bars, and crutches Disposition Plan: Patient to discharge home with family support and follow-up plans in place. Ruthie HAMMONDS, RN, CM
[2020-04-19] MEDS: Ceftriaxone 1 GM/50 ML BAG IV (10:33)
--- NOTE | 2020-04-19 11:26 | PCM.PROGNOTE ---
<MarkDanitza BUSINESS CONTINUITY DIRECTOR - Last Filed: 04/19/20 11:33> Patient Problems: Active and Suspected Problems Generalized weakness (Acute) Shortness of breath (Acute) Subjective: Patient seen and examined. Reports left foot gout pain is improved, amendable to working with physical therapy today. Patient states she has followed with GI and hematology for ongoing anemia. She states she had upper and lower scopes in June of this year which demonstrated a diverticular bleed. Her Coumadin was discontinued at that time and she has not had further issues since. She denies blood in stool or dark stools. She also states she has received iron transfusions from Dr. Arroyo in the past. - Physical Exam Vitals/I&O's: Vital Signs Temp Pulse Resp BP Pulse Ox 98.5 F 78 14 146/49 H 93 04/19/20 08:26 04/19/20 08:46 04/19/20 08:26 04/19/20 08:46 04/19/20 08:26 Oxygen Delivery Method Room Air Weight: 199 lb 8.293 oz Body Mass Index (BMI) 32.2 Intake and Output for Last 24 Hours 04/17/20 04/18/20 04/19/20 23:59 23:59 23:59 Intake Total 322.5 / 522.5 3065 / 3065 1700 / 1700 Balance 322.5 / 522.5 3065 / 3065 1700 / 1700 General: Alert, Oriented x3, Cooperative HEENT: Atraumatic, PERRLA, EOMI, Normocephalic Neck: Supple, No JVD, Negative Carotid Bruits Lungs: Clear to auscultation, Normal air movement Cardiovascular: Regular rate, No murmurs Abdomen: Bowel Sounds Present, Soft, Non Tender, Non-Distended Extremities: No clubbing, No cyanosis, No edema, Capillary Refill Less than 3 Seconds Skin: No rashes, No breakdown Musculoskeletal: No Tenderness to Palpation of Joints or Extremities Neurological: Cranial nerves II-XII grossly intact, Neuro grossly intact Psych/Mental Status: Normal Affect, Appropriate Microbiology Past 72 Hours 04/17/20 17:00 Urine, Clean Catch Urine Culture - Final Klebsiella oxytoca 04/19/20 07:00 Stool Stool Occult Blood (EBONY) - Final Occult Blood Positive 04/17/20 17:06 Mucosa - Nose SARS-CoV-2 Antigen (Rapid) - Final Laboratory Results 04/19/20 05:47: WBC 6.4, RBC 3.32 L, Hgb 8.5 L, Hct 28.9 L, MCV 87.0, MCH 25.6 L, MCHC 29.4 L, RDW Std Deviation 45.3 H, RDW Coeff of Rhys 14.4, Plt Count 277, MPV 9.8 04/19/20 05:47: Sodium 142, Potassium 4.2, Chloride 114 H, Carbon Dioxide 21.0, Anion Gap 7, BUN 30 H, Creatinine 2.31 H, Estim Creat Clear Calc 20.61, Est GFR (MDRD) Af Amer 27 L, Est GFR (MDRD) Non-Af 22 L, BUN/Creatinine Ratio 13.0, Glucose 191 H, Calcium 8.8 Current Medications Acetaminophen (Acetaminophen 325 Mg Tablet) 650 mg PO Q6H PRN PRN PRN Reason: Pain 1-10 or Fever Last Admin: 04/18/20 16:40 Dose: 650 mg Documented by: Amlodipine Besylate (Amlodipine 10 Mg Tablet) 10 mg PO DAILY [facility] Last Admin: 04/19/20 08:49 Dose: 10 mg Documented by: Atorvastatin Calcium (Atorvastatin Calcium 10 Mg Tablet) 10 mg PO QHS [facility] Last Admin: 04/18/20 21:24 Dose: 10 mg Documented by: Sodium Chloride () 1,000 mls @ 75 mls/hr IV .[id number] [facility] Last Admin: 04/19/20 08:40 Dose: 75 mls/hr Documented by: Ceftriaxone Sodium (Rocephin) 1 gm in 50 mls @ 100 mls/hr IV Q24 [facility] Last Admin: 04/19/20 10:33 Dose: 100 mls/hr Documented by: Sodium Chloride () 250 mls @ 15 mls/hr IV .[id number] PRN PRN Reason: Saline Flush Sodium Chloride () 250 mls @ 15 mls/hr IV .[id number] PRN PRN Reason: Additional IVPB Infusion Metoprolol Tartrate (Metoprolol Tartrate 25 Mg Tablet) 12.5 mg PO BID [facility] Last Admin: 04/19/20 08:46 Dose: 12.5 mg Documented by: Mycophenolate Mofetil (Mycophenolate Mofetil 250 Mg Capsule) 750 mg PO BID [facility] Last Admin: 04/19/20 08:43 Dose: 750 mg Documented by: Nutritional Formula (Lactose Free) (Ensure Enlive 120 Ml Liquid) 120 ml PO 4X/DAY [facility] Last Admin: 04/19/20 08:44 Dose: 120 ml Documented by: Nystatin (Nystatin Powder 15gm Bottle) 1 applic TOPICAL BID [facility]; Protocol Last Admin: 04/19/20 08:48 Dose: 1 applicatio Documented by: Ondansetron HCl (Ondansetron 4 Mg/2 Ml Vial) 4 mg IV Q8H PRN PRN PRN Reason: NAUSEA/VOMITING Pantoprazole Sodium (Pantoprazole Sodium 40 Mg Tablet) 40 mg PO BID [facility] Last Admin: 04/19/20 08:50 Dose: 40 mg Documented by: Prednisone (Prednisone 20 Mg Tablet) 20 mg PO DAILY@0800 [facility] Stop: 04/22/20 13:08 Sodium Chloride (0.9% Saline Lock 10 Ml Syringe) 10 - 40 ml IV UD PRN PRN Reason: SALINE FLUSH Tacrolimus (Tacrolimus 0.5 Mg Capsule) 1 mg PO DAILY [facility] Last Admin: 04/19/20 08:51 Dose: 1 mg Documented by: Tacrolimus (Tacrolimus 0.5 Mg Capsule) 0.5 mg PO QHS [facility] Last Admin: 04/18/20 21:20 Dose: 0.5 mg Documented by: Trimethoprim/Sulfamethoxazole (Smz/Tmp Ds Tablet) 0.5 tablet PO DAILYCM [facility] Last Admin: 04/19/20 08:40 Dose: 0.5 tablet Documented by: Medical Necessity - Tobacco Use Smoking Status: Never smoker Tobacco Use: Non-smoker Assessment/Plan All Active Problems Generalized weakness (Acute) Shortness of breath (Acute) 1. Acute Klebsiella cystitis-IV Rocephin. Urine culture growing Klebsiella. Continue IV Rocephin today, will transition to oral tomorrow. PT/OT for ongoing weakness. 2. Acute on chronic normocytic anemia-status post 2 units PRBC. Patient received IV iron on admission. Stool for occult blood positive. Patient states she had upper and lower scope June 2019 at outside facility which showed a diverticular bleed. She was on Coumadin at that time which was discontinued. She also states she has seen hematology, Dr. Arroyo for ongoing anemia and has received iron transfusions in the past. Continue twice daily PPI. Trend CBC. If hemoglobin remains stable, plan for continued outpatient follow-up. If patient has further significant reduction in hemoglobin, consider surgery consult for repeat scope. Will give additional dose of IV iron. 3. Acute kidney injury on chronic kidney disease, history of renal transplant 2009-acute kidney injury improved with IV fluids. Appears at baseline. Trend BMP. Continue antirejection regimen. 4. Debility-PT/OT. 5. Hypertension-stable, continue amlodipine, metoprolol. 6. Hyperlipidemia-continue statin. 7. Gout-uses as needed prednisone at home. Continue prednisone 20 mg daily until symptoms improve and then resume home daily prednisone regimen. DVT prophylaxis-SCDs This patient was seen by GRANT Hopper under the supervision of Dr. Burgess. <Em Burgess - Last Filed: 04/19/20 16:48> - Physical Exam Vitals/I&O's: Vital Signs Temp Pulse Resp BP Pulse Ox 98.0 F 72 14 144/58 H 97 04/19/20 13:16 04/19/20 13:16 04/19/20 13:16 04/19/20 13:16 04/19/20 13:16 Oxygen Delivery Method Room Air Weight: 199 lb 8.293 oz Body Mass Index (BMI) 32.2 Intake and Output for Last 24 Hours 04/17/20 04/18/20 04/19/20 23:59 23:59 23:59 Intake Total 322.5 / 522.5 3065 / 3065 1750 / 1750 Balance 322.5 / 522.5 3065 / 3065 1750 / 1750 Microbiology Past 72 Hours 04/17/20 17:00 Urine, Clean Catch Urine Culture - Final Klebsiella oxytoca 04/19/20 07:00 Stool Stool Occult Blood (EBONY) - Final Occult Blood Positive 04/17/20 17:06 Mucosa - Nose SARS-CoV-2 Antigen (Rapid) - Final Laboratory Results 04/19/20 05:47: WBC 6.4, RBC 3.32 L, Hgb 8.5 L, Hct 28.9 L, MCV 87.0, MCH 25.6 L, MCHC 29.4 L, RDW Std Deviation 45.3 H, RDW Coeff of Rhys 14.4, Plt Count 277, MPV 9.8 04/19/20 05:47: Sodium 142, Potassium 4.2, Chloride 114 H, Carbon Dioxide 21.0, Anion Gap 7, BUN 30 H, Creatinine 2.31 H, Estim Creat Clear Calc 20.61, Est GFR (MDRD) Af Amer 27 L, Est GFR (MDRD) Non-Af 22 L, BUN/Creatinine Ratio 13.0, Glucose 191 H, Calcium 8.8 Current Medications Acetaminophen (Acetaminophen 325 Mg Tablet) 650 mg PO Q6H PRN PRN PRN Reason: Pain 1-10 or Fever Last Admin: 04/18/20 16:40 Dose: 650 mg Documented by: Amlodipine Besylate (Amlodipine 10 Mg Tablet) 10 mg PO DAILY [facility] Last Admin: 04/19/20 08:49 Dose: 10 mg Documented by: Atorvastatin Calcium (Atorvastatin Calcium 10 Mg Tablet) 10 mg PO QHS [facility] Last Admin: 04/18/20 21:24 Dose: 10 mg Documented by: Sodium Chloride () 1,000 mls @ 75 mls/hr IV .[id number] [facility] Last Admin: 04/19/20 08:40 Dose: 75 mls/hr Documented by: Ceftriaxone Sodium (Rocephin) 1 gm in 50 mls @ 100 mls/hr IV Q24 [facility] Last Infusion: 04/19/20 11:03 Dose: Infused Documented by: Sodium Chloride () 250 mls @ 15 mls/hr IV .[id number] PRN PRN Reason: Saline Flush Sodium Chloride () 250 mls @ 15 mls/hr IV .[id number] PRN PRN Reason: Additional IVPB Infusion Metoprolol Tartrate (Metoprolol Tartrate 25 Mg Tablet) 12.5 mg PO BID [facility] Last Admin: 04/19/20 08:46 Dose: 12.5 mg Documented by: Mycophenolate Mofetil (Mycophenolate Mofetil 250 Mg Capsule) 750 mg PO BID [facility] Last Admin: 04/19/20 08:43 Dose: 750 mg Documented by: Nutritional Formula (Lactose Free) (Ensure Enlive 120 Ml Liquid) 120 ml PO 4X/DAY [facility] Last Admin: 04/19/20 13:51 Dose: 120 ml Documented by: Nystatin (Nystatin Powder 15gm Bottle) 1 applic TOPICAL BID [facility]; Protocol Last Admin: 04/19/20 08:48 Dose: 1 applicatio Documented by: Ondansetron HCl (Ondansetron 4 Mg/2 Ml Vial) 4 mg IV Q8H PRN PRN PRN Reason: NAUSEA/VOMITING Pantoprazole Sodium (Pantoprazole Sodium 40 Mg Tablet) 40 mg PO BID [facility] Last Admin: 04/19/20 08:50 Dose: 40 mg Documented by: Prednisone (Prednisone 20 Mg Tablet) 20 mg PO DAILY@0800 [facility] Stop: 04/22/20 13:08 Last Admin: 04/19/20 13:51 Dose: 20 mg Documented by: Sodium Chloride (0.9% Saline Lock 10 Ml Syringe) 10 - 40 ml IV UD PRN PRN Reason: SALINE FLUSH Tacrolimus (Tacrolimus 0.5 Mg Capsule) 1 mg PO DAILY [facility] Last Admin: 04/19/20 08:51 Dose: 1 mg Documented by: Tacrolimus (Tacrolimus 0.5 Mg Capsule) 0.5 mg PO QHS [facility] Last Admin: 04/18/20 21:20 Dose: 0.5 mg Documented by: Trimethoprim/Sulfamethoxazole (Smz/Tmp Ds Tablet) 0.5 tablet PO DAILYCM [facility] Last Admin: 04/19/20 08:40 Dose: 0.5 tablet Documented by: Assessment/Plan Patient seen by Danitza BURNS under my supervision Patient seen and examined. She feels better today. Left foot pain has improved. Review of symptoms otherwise negative. She received 2 units of blood yesterday. Review of systems otherwise negative. She has remained hemodynamically stable. O/E: Vital Signs Temp Pulse Resp BP Pulse Ox 98.4 F 78 18 139/59 H 92 04/18/20 14:40 04/18/20 14:40 04/18/20 14:40 04/18/20 14:40 04/18/20 14:40 General: Alert, Oriented x3, Cooperative, HEENT: Atraumatic, PERRLA, EOMI, Normocephalic Neck: Supple, No JVD, Negative Carotid Bruits Lungs: Clear to auscultation, Normal air movement Cardiovascular: Regular rate, No murmurs Abdomen: Bowel Sounds Present, Soft, Non Tender, Non-Distended Extremities: No clubbing, No cyanosis, No edema, Capillary Refill Less than 3 Seconds Skin: No rashes, No breakdown Musculoskeletal: No Tenderness to Palpation of Joints or Extremities Neurological: Cranial nerves II-XII grossly intact, Neuro grossly intact Psych/Mental Status: Normal Affect, Appropriate Plan is continue IV Rocephin. Urine culture grew Klebsiella oxytoca. Hemoglobin today is 8.5 after 2 units of blood. Continue steroids for gout. Creatinine is 2.31 today. Continue gentle hydration with IV fluids. Stool for occult blood is positive. Patient states she had EGD and colonoscopy in June 2019 of this year which showed diverticular bleed. She follows up with hematology. Continue PPI. If anemia worsens, will consult general surgery. Rest as per GRANT Hopper's notes which I have reviewed and endorsed. Inpatient E&M: 26513 Subs Hosp L2
--- NOTE | 2020-04-19 12:25 | NT.THERAPY_ITS ---
Nutrition Therapy Report - History Nutrition Services has been consulted to:: Manage nutrient details of diet order Current diet / nutrition support order:: Regular - Anthropometric Measurements Height:: 5 ft 6 in Weight:: 90.5 kg Body Mass Index (BMI):: 32.2 - Relevant Labs Relevant Labs:: RBC 3.32 M/mm3 (4.2-5.4) L 04/19/20 05:47 Hgb 8.5 g/dL (12.0-15.0) L 04/19/20 05:47 Hct 28.9 % (37-47) L 04/19/20 05:47 MCH 25.6 pg (27.0-32.0) L 04/19/20 05:47 MCHC 29.4 g/dL (32-36) L 04/19/20 05:47 RDW Std Deviation 45.3 fl (35.1-43.9) H 04/19/20 05:47 Neut % (Auto) 73.8 % (47-70) H 04/18/20 06:50 Lymph % (Auto) 9.5 % (19-41) L 04/18/20 06:50 Cross % (Auto) 12.9 % (0-10) H 04/18/20 06:50 Absolute Lymphs (auto) 0.48 X10^3/uL (0.83-4.51) L 04/18/20 06:50 Potassium 3.4 mmol/L (3.5-5.1) L 04/17/20 17:00 Chloride 114 mmol/L (98-107) H 04/19/20 05:47 Carbon Dioxide 20.0 mmol/L (21.0-32.0) L 04/18/20 06:50 BUN 30 mg/dL (7-18) H 04/19/20 05:47 Creatinine 2.31 mg/dL (0.55-1.02) H 04/19/20 05:47 Est GFR (MDRD) Af Amer 27 mL/min (>60) L 04/19/20 05:47 Est GFR (MDRD) Non-Af 22 mL/min (>60) L 04/19/20 05:47 Glucose 191 mg/dL (74-106) H 04/19/20 05:47 AST 12 U/L (15-37) L 04/17/20 17:00 - Assessment Food / Nutrition-Related History:: Pt states tries to limit salt in diet at home - 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 (sig for malnutrition). Pt agreeable and accepting to ONS at [facility]. May see additonal wt loss w/ improvement in fluid status - has +1 nonpitting L foot/ankle edema. Gluc elevated - likely d/t steroid use. H/H low- but had 2 units PRBC since adm and feeling better. 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 Evidence of Malnutrition Exists:: Yes Severe PCM:: Acute Illness - Nutrition Intervention Nutrition Prescription:: [id number] skylar / 70-80 gm pro / day - Food / Nutrient Delivery Interventions Summary of nutrition intervention:: Rec continue liberal Regular diet w/ ONS at [facility] for increased nutrition if consumed. [ End ] - MNT Monitoring Further MNT monitoring and evaluation required?: Yes MNT Follow-up in:: 3-5 days - please call RD/LD if questions / concerns @ x [phone]
[2020-04-19 12:28] VITALS: BMI 32.2
[2020-04-19 13:16] VITALS: BP 144/58; PULSE 72; RESP 14; TEMP 36.7; O2SAT 97
[2020-04-19] MEDS: predniSONE 20 MG Tablet PO (13:51)
[2020-04-19] MEDS: Sodium Ferric Gluconat 250 MG in 0.9% Normal Saline 250 ML 135 MG IV (13:51)
[2020-04-19 19:30] VITALS: BP 168/53; PULSE 92; RESP 16; TEMP 36.8; O2SAT 94
[2020-04-19 21:48] VITALS: PULSE 92
[2020-04-19] MEDS: Atorvastatin Calcium 10 MG Tablet PO (21:48)
[2020-04-19] MEDS: Tacrolimus 0.5 MG Capsule PO (21:50)
[2020-04-20 01:30] VITALS: BP 162/66; PULSE 86; RESP 16; TEMP 36.9; O2SAT 95
[2020-04-20 04:00] VITALS: O2SAT 94
[2020-04-20 05:49] VITALS: BP 163/87; PULSE 87; RESP 16; TEMP 36.9; O2SAT 95
[2020-04-20 07:13] LABS: Hematocrit 30.3 % (37-47); Mean Corp Hgb Conc 29.7 g/dL (32-36); Mean Corpuscular Hgb 26.1 pg (27.0-32.0); Mean Corpuscular Volume 87.8 fL (81-99); Mean Platelet Vol. 9.5 fl (6.2-12.0); Platelet Count 300 K/mm3 (150-450); RBC Distribution Width CV 14.6 % (11.6-14.6); RBC Distribution Width SD 45.4 fl (35.1-43.9); Red Blood Count 3.45 M/mm3 (4.2-5.4); White Blood Count 11.4 K/mm3 (4.4-11.0)
[2020-04-20 08:24] LABS: Anion Gap 8 (5-15); BUN 36 mg/dL (7-18); BUN/Creat Ratio 16.1 RATIO (10-20); Chloride 112 mmol/L (98-107); Creatinine, Serum 2.23 mg/dL (0.55-1.02); EST Glomerular Filtration Rate 23 mL/min (>60); Est Glom Filt Rate - Afr Amer 28 mL/min (>60); Estimated Creatinine Clearance 21.35 ml/min; Glucose 176 mg/dL (74-106); Potassium 4.5 mmol/L (3.5-5.1); Sodium Level 139 mmol/L (136-145)
[2020-04-20 09:03] VITALS: BP 153/55; PULSE 85; RESP 18; TEMP 36.6; O2SAT 95
[2020-04-20 09:04] VITALS: PULSE 85
[2020-04-20] MEDS: Metoprolol Tartrate 25 MG Tablet 12.5 MG PO (09:04)
[2020-04-20] MEDS: Smz/Tmp Ds Tablet 0.5 TABLET PO (09:04)
[2020-04-20] MEDS: amLODIPine 10 MG Tablet PO (09:05)
[2020-04-20] MEDS: Pantoprazole Sodium 40 MG Tablet PO (09:05)
[2020-04-20] MEDS: Mycophenolate Mofetil 250 MG Capsule 750 MG PO (09:06)
[2020-04-20] MEDS: Nystatin Powder 15gm Bottle 1 APPLIC TOPICAL (09:06)
[2020-04-20] MEDS: predniSONE 20 MG Tablet PO (09:07)
[2020-04-20] MEDS: Tacrolimus 0.5 MG Capsule 1 MG PO (09:07)
[2020-04-20] MEDS: Ceftriaxone 1 GM/50 ML BAG IV (09:14)
--- NOTE | 2020-04-20 13:34 | PCM.DC ---
- Discharge Diagnoses Current Active Problems: Current Active and Chronic Problems UTI Anemia You will use the following diet at home:: Renal (restricted protein/sodium) Discharge Activity: Return to Normal Activity Call your doctor if you observe: Fever of 101 or Higher, Shortness of breath, Dizziness, Fainting spells, Chest pain Additional Instructions: Recommend repeat CBC in 3 to 5 days by primary care provider to further monitor anemia. Please follow-up with primary automatic quilling machine operator, Dr. Araya as well. Allergies/Adverse Reactions: Allergies No Known Allergies Allergy (Verified 04/17/20 20:12) Medications to take at Discharge Magnesium Oxide [Mag-Ox 400] 400 mg PO DAILY 01/19/14 Mycophenolate Mofetil [Cellcept] 750 mg PO BID 01/19/14 Simvastatin [Zocor] 20 mg PO QHS 01/19/14 Amlodipine [Norvasc] 10 mg PO DAILY 04/17/20 Chlorthalidone 25 mg PO DAILY 04/17/20 Cholecalciferol (Vitamin D3) [Vitamin D3] 2,000 unit PO DAILY 04/17/20 Metoprolol Tartrate 12.5 mg PO BID 04/17/20 Potassium Chloride [Klor-Con M10] 10 meq PO DAILY 04/17/20 Prednisone 5 mg PO DAILY 04/17/20 Sulfamethoxazole/Trimethoprim [Sulfamethoxazole-Tmp Ss Tablet] 1 tab PO DAILY 04/17/20 Tacrolimus 0.5 mg PO DAILY 04/17/20 Tacrolimus 1 mg PO DAILY 04/17/20 Prednisone 15 mg PO DAILY PRN PRN 04/18/20 Cephalexin [Keflex] 250 mg PO Q12 #10 cap 04/20/20 Ferrous Sulfate 325 mg PO BID #60 tab 04/20/20 Pantoprazole Sodium [Protonix] 40 mg PO BID #60 tab 04/20/20 The following prescriptions were given: Ferrous Sulfate 325 mg PO BID #60 tab Transmission Status: Pending to [facility] Cephalexin [Keflex] 250 mg PO Q12 #10 cap Transmission Status: Pending to [facility] Pantoprazole Sodium [Protonix] 40 mg PO BID #60 tab Transmission Status: Pending to [facility] Primary Care Physician: Hamilton Armstrong MD [Primary Care Provider] - Please follow up with your Primary Care Physician in: 1 Week Test Results: Test results from this visit will be discussed in further detail at your follow-up appointment, if applicable. Please Follow Up With: Rodney Araya MD - GI When: 1 Week Please Follow Up With: Primary Lens Generating Machine Tender When: 1 Week Proposed Discharge Date: 04/20/20
--- NOTE | 2020-04-20 13:38 | DS.PCM_ITS ---
<Danitza Flores OUTPATIENT THERAPIST - Last Filed: 04/20/20 13:46> Discharge Date and Diagnosis - Problem List Patient Problems: Active and Suspected Problems Generalized weakness (Acute) Shortness of breath (Acute) Date of Admission: 04/17/20 Date of Discharge: 04/20/20 - Primary Discharge Diagnosis Acute Problems: Active Problems 1. Acute Klebsiella cystitis 2. Acute on chronic normocytic anemia 3. Acute kidney injury on chronic kidney disease, history of renal transplant 2009 4. Debility 5. Hypertension 6. Hyperlipidemia 7. Gout Hospital Course and Treatment Imaging Results: Diagnostic Data Chest X-Ray 04/17/20 17:30 IMPRESSION: COPD and superimposed ASHD. Cannot definitively exclude coexisting inflammatory disease in the lower lobes. Clinical correlation recommended Electronically Signed: Terrence Encarnacion MD at 18:06 EST , Service support , Operations: None Procedures: None Summary of Care Provided: The patient is a 74 year old F admitted 04/17/2020 due to generalized weakness and shortness of breath. 1. Acute Klebsiella cystitis-IV Rocephin during admission. Urine culture growing Klebsiella. Transition to Keflex to complete course. Follow-up with PCP in 1 week. 2. Acute on chronic normocytic anemia-status post 2 units PRBC. Patient received IV iron on admission. Stool for occult blood positive. Patient states she had upper and lower scope June 2019 at outside facility which showed a diverticular bleed. She was on Coumadin at that time which was discontinued. She also states she has seen hematology, Dr. Arroyo for ongoing anemia and has received iron transfusions in the past. Continue twice daily PPI. Hemoglobin has since remained stable. Recommend repeat CBC in 3 to 5 days by primary care provider and follow-up with patient's soa integration developer, Dr. Araya for further evaluation and management. 3. Acute kidney injury on chronic kidney disease, history of renal transplant 2009-acute kidney injury improved with IV fluids. Appears at baseline. Continue antirejection regimen. Follow-up with primary weights and measures inspector in 1 week. 4. Debility-improved following treatment of gout. Home with no needs. Patient has family support at home. 5. Hypertension-stable, continue amlodipine, metoprolol. 6. Hyperlipidemia-continue statin. 7. Gout-uses as needed prednisone at home. Patient received prednisone 20 mg daily for 3 days with resolve of acute gout. General: Alert, Oriented x3, Cooperative HEENT: Atraumatic, PERRLA, EOMI, Normocephalic Neck: Supple, No JVD, Negative Carotid Bruits Lungs: Clear to auscultation, Normal air movement Cardiovascular: Regular rate, No murmurs Abdomen: Bowel Sounds Present, Soft, Non Tender, Non-Distended Extremities: No clubbing, No cyanosis, No edema, Capillary Refill Less than 3 Seconds Skin: No rashes, No breakdown Musculoskeletal: No Tenderness to Palpation of Joints or Extremities Neurological: Cranial nerves II-XII grossly intact, Neuro grossly intact Psych/Mental Status: Normal Affect, Appropriate Patient seen and examined prior to discharge. Physical assessment as noted above. Patient is stable for discharge with follow up recommendations as noted above. This patient was seen by GRANT Hopper under the supervision of Dr. Burgess. Patient Problems: Active and Suspected Problems Generalized weakness (Acute) Shortness of breath (Acute) - Physical Exam Vitals/I&O's: Vital Signs Temp Pulse Resp BP Pulse Ox 97.8 F 85 18 153/55 H 95 04/20/20 09:03 04/20/20 09:04 04/20/20 09:03 04/20/20 09:03 04/20/20 09:03 Oxygen Delivery Method Room Air Weight: 199 lb 8.293 oz Body Mass Index (BMI) 32.2 Intake and Output for Last 24 Hours 04/18/20 04/19/20 04/20/20 23:59 23:59 23:59 Intake Total 3065 / 3065 3020 / 3270 1156.25 / 1156.25 Output Total 300 / 300 Balance 3065 / 3065 3020 / 2970 856.25 / 856.25 Microbiology Past 72 Hours 04/17/20 17:00 Urine, Clean Catch Urine Culture - Final Klebsiella oxytoca 04/19/20 07:00 Stool Stool Occult Blood (EBONY) - Final Occult Blood Positive 04/17/20 17:06 Mucosa - Nose SARS-CoV-2 Antigen (Rapid) - Final Laboratory Results 04/20/20 06:59: WBC 11.4 H, RBC 3.45 L, Hgb 9.0 L, Hct 30.3 L, MCV 87.8, MCH 26.1 L, MCHC 29.7 L, RDW Std Deviation 45.4 H, RDW Coeff of Rhys 14.6, Plt Count 300, MPV 9.5 04/20/20 06:59: Sodium 139, Potassium 4.5, Chloride 112 H, Carbon Dioxide 19.0 L , Anion Gap 8, BUN 36 H, Creatinine 2.23 H, Estim Creat Clear Calc 21.35, Est GFR (MDRD) Af Amer 28 L, Est GFR (MDRD) Non-Af 23 L, BUN/Creatinine Ratio 16.1, Glucose 176 H, Calcium 9.0 Current Medications Acetaminophen (Acetaminophen 325 Mg Tablet) 650 mg PO Q6H PRN PRN PRN Reason: Pain 1-10 or Fever Last Admin: 04/18/20 16:40 Dose: 650 mg Documented by: Amlodipine Besylate (Amlodipine 10 Mg Tablet) 10 mg PO DAILY [facility] Last Admin: 04/20/20 09:05 Dose: 10 mg Documented by: Atorvastatin Calcium (Atorvastatin Calcium 10 Mg Tablet) 10 mg PO QHS [facility] Last Admin: 04/19/20 21:48 Dose: 10 mg Documented by: Sodium Chloride () 1,000 mls @ 75 mls/hr IV .[id number] [facility] Last Infusion: 04/20/20 09:14 Dose: 0 mls/hr Documented by: Ceftriaxone Sodium (Rocephin) 1 gm in 50 mls @ 100 mls/hr IV Q24 [facility] Last Admin: 04/20/20 09:14 Dose: 100 mls/hr Documented by: Sodium Chloride () 250 mls @ 15 mls/hr IV .[id number] PRN PRN Reason: Saline Flush Sodium Chloride () 250 mls @ 15 mls/hr IV .[id number] PRN PRN Reason: Additional IVPB Infusion Metoprolol Tartrate (Metoprolol Tartrate 25 Mg Tablet) 12.5 mg PO BID [facility] Last Admin: 04/20/20 09:04 Dose: 12.5 mg Documented by: Mycophenolate Mofetil (Mycophenolate Mofetil 250 Mg Capsule) 750 mg PO BID [facility] Last Admin: 04/20/20 09:06 Dose: 750 mg Documented by: Nutritional Formula (Lactose Free) (Ensure Enlive 120 Ml Liquid) 120 ml PO 4X/DAY [facility] Last Admin: 04/20/20 09:14 Dose: 120 ml Documented by: Nystatin (Nystatin Powder 15gm Bottle) 1 applic TOPICAL BID [facility]; Protocol Last Admin: 04/20/20 09:06 Dose: 1 applicatio Documented by: Ondansetron HCl (Ondansetron 4 Mg/2 Ml Vial) 4 mg IV Q8H PRN PRN PRN Reason: NAUSEA/VOMITING Pantoprazole Sodium (Pantoprazole Sodium 40 Mg Tablet) 40 mg PO BID [facility] Last Admin: 04/20/20 09:05 Dose: 40 mg Documented by: Prednisone (Prednisone 20 Mg Tablet) 20 mg PO DAILY@0800 [facility] Stop: 04/22/20 13:08 Last Admin: 04/20/20 09:07 Dose: 20 mg Documented by: Sodium Chloride (0.9% Saline Lock 10 Ml Syringe) 10 - 40 ml IV UD PRN PRN Reason: SALINE FLUSH Tacrolimus (Tacrolimus 0.5 Mg Capsule) 1 mg PO DAILY [facility] Last Admin: 04/20/20 09:07 Dose: 1 mg Documented by: Tacrolimus (Tacrolimus 0.5 Mg Capsule) 0.5 mg PO QHS [facility] Last Admin: 04/19/20 21:50 Dose: 0.5 mg Documented by: Trimethoprim/Sulfamethoxazole (Smz/Tmp Ds Tablet) [facility] Admin: 04/20/20 09:04 Dose: 0.5 tablet Documented by: Discharge Diet: Renal Diet Discharge Activity: Return to Normal Activity Call your doctor if you observe: Fever of 101 or Higher, Shortness of breath, Dizziness, Fainting spells, Chest pain Home Medications: Medications to take at Discharge Magnesium Oxide [Mag-Ox 400] 400 mg PO DAILY 01/19/14 Mycophenolate Mofetil [Cellcept] 750 mg PO BID 01/19/14 Simvastatin [Zocor] 20 mg PO QHS 01/19/14 Amlodipine [Norvasc] 10 mg PO DAILY 04/17/20 Chlorthalidone 25 mg PO DAILY 04/17/20 Cholecalciferol (Vitamin D3) [Vitamin D3] 2,000 unit PO DAILY 04/17/20 Metoprolol Tartrate 12.5 mg PO BID 04/17/20 Potassium Chloride [Klor-Con M10] 10 meq PO DAILY 04/17/20 Prednisone 5 mg PO DAILY 04/17/20 Sulfamethoxazole/Trimethoprim [Sulfamethoxazole-Tmp Ss Tablet] 1 tab PO DAILY 04/17/20 Tacrolimus 0.5 mg PO DAILY 04/17/20 Tacrolimus 1 mg PO DAILY 04/17/20 Prednisone 15 mg PO DAILY PRN PRN 04/18/20 Cephalexin [Keflex] 250 mg PO Q12 #10 cap 04/20/20 Ferrous Sulfate 325 mg PO BID #60 tab 04/20/20 Pantoprazole Sodium [Protonix] 40 mg PO BID #60 tab 04/20/20 Following Prescriptions Were Given to Patient: Ferrous Sulfate 325 mg PO BID #60 tab Transmission Status: Received by [facility] Cephalexin [Keflex] 250 mg PO Q12 #10 cap Transmission Status: Received by [facility] Pantoprazole Sodium [Protonix] 40 mg PO BID #60 tab Transmission Status: Received by [facility] Primary Care Physician: Hamilton Armstrong MD [Primary Care Provider] - Please follow up with your Primary Care Physician in: 1 Week Please Follow Up With: Rodney Araya MD - GI When: 1 Week Please Follow Up With: Primary Machining Technician When: 1 Week Disposition: Home Minutes spent on discharge:: 35 Patient Condition:: Stable Medical Necessity - Tobacco Use Smoking Status: Never smoker Tobacco Use: Non-smoker Meaningful Use Info Meaningful Use Diagnoses (Choose all that apply): None applicable <Em Burgess - Last Filed: 04/20/20 16:16> Discharge Date and Diagnosis - Primary Discharge Diagnosis Acute Problems: Active Problems Generalized weakness (Acute) Shortness of breath (Acute) Hospital Course and Treatment Summary of Care Provided: Patient seen by Danitza BURNS under my supervision The patient is a 74 year old F with a past medical history as outlined was admitted through the ED with a complaint of weakness shortness of breath. She was found to have UTI and treated with IV ceftriaxone. Hospital stay was also complicated by acute on chronic anemia requiring 2 units of packed red blood cells. Patient also had gout of left foot on admission which resolved with treatment with steroids. Stool for occult blood was positive. Patient had a history of chronic anemia and had been following up with hematology for recurrent transfusion as needed. She had had an EGD and colonoscopy on outpatient basis in 09/04/2019 which was positive for diverticular bleed. Patient hemoglobin came up to 9 and she remained stable. She was discharged home on 04/20/2020 and follow-up with her PCP and soa integration developer on outpatient basis for further work-up of her anemia as needed. Note, urine culture Klebsiella she was discharged home on a course of p.o. Keflex. Patient seen and examined prior to discharge. She felt well and had no complaints. Review of symptoms otherwise negative. Labs and vitals reviewed. Home Medication reviewed and reconciled. O/E: Vital Signs Temp Pulse Resp BP Pulse Ox 97.9 F 87 20 H 157/60 H 93 04/20/20 15:01 04/20/20 15:01 04/20/20 15:01 04/20/20 15:01 04/20/20 15:01 [] General: Alert, Oriented x3, Cooperative HEENT: Atraumatic, PERRLA, EOMI, Normocephalic Neck: Supple, No JVD, Negative Carotid Bruits Lungs: Clear to auscultation, Normal air movement Cardiovascular: Regular rate, No murmurs Abdomen: Bowel Sounds Present, Soft, Non Tender, Non-Distended Extremities: No clubbing, No cyanosis, No edema, Capillary Refill Less than 3 Seconds Skin: No rashes, No breakdown Musculoskeletal: No Tenderness to Palpation of Joints or Extremities Neurological: Cranial nerves II-XII grossly intact, Neuro grossly intact Psych/Mental Status: Normal Affect, Appropriate Plan is for discharge home today as above. Rest as per GRANT Hopper's notes which I have reviewed and endorsed. - Physical Exam Vitals/I&O's: Vital Signs Temp Pulse Resp BP Pulse Ox 97.9 F 87 20 H 157/60 H 93 04/20/20 15:01 04/20/20 15:01 04/20/20 15:01 04/20/20 15:01 04/20/20 15:01 Oxygen Delivery Method Room Air Weight: 199 lb 8.293 oz Body Mass Index (BMI) 32.2 Intake and Output for Last 24 Hours 04/18/20 04/19/20 04/20/20 23:59 23:59 23:59 Intake Total 3065 / 3065 3020 / 3270 1706.25 / 1706.25 Output Total 300 / 300 Balance 3065 / 3065 3020 / 2970 1406.25 / 1406.25 Microbiology Past 72 Hours 04/17/20 17:00 Urine, Clean Catch Urine Culture - Final Klebsiella oxytoca 04/19/20 07:00 Stool Stool Occult Blood (EBONY) - Final Occult Blood Positive 04/17/20 17:06 Mucosa - Nose SARS-CoV-2 Antigen (Rapid) - Final Laboratory Results 04/20/20 06:59: WBC 11.4 H, RBC 3.45 L, Hgb 9.0 L, Hct 30.3 L, MCV 87.8, MCH 26. 1 L, MCHC 29.7 L, RDW Std Deviation 45.4 H, RDW Coeff of Rhys 14.6, Plt Count 300, MPV 9.5 04/20/20 06:59: Sodium 139, Potassium 4.5, Chloride 112 H, Carbon Dioxide 19.0 L , Anion Gap 8, BUN 36 H, Creatinine 2.23 H, Estim Creat Clear Calc 21.35, Est GFR (MDRD) Af Amer 28 L, Est GFR (MDRD) Non-Af 23 L, BUN/Creatinine Ratio 16.1, Glucose 176 H, Calcium 9.0 Inpatient E&M: [id number] Disch Hosp
[2020-04-20 15:01] VITALS: BP 157/60; PULSE 87; RESP 20; TEMP 36.6; O2SAT 93
== END 2020-04-20 15:09 | disposition home or self-care (01) | DRG 689 ==
LOC: ED 16:55 → MS3 20:22
PROVIDERS: Nurse Practitioner Family; Admitting Provider Internal Medicine; Emergency Provider Emergency Medicine; PCP Family Medicine; Visit Provider Student in an Organized Health Care Education/Training Program
DX: N30.00 Acute cystitis without hematuria (principal); E43 Unspecified severe protein-calorie malnutrition; N17.9 Acute kidney failure, unspecified; Z94.0 Kidney transplant status; D50.9 Iron deficiency anemia, unspecified; B96.1 Klebsiella pneumoniae [K. pneumoniae] as the cause of diseases classified elsewhere; E87.6 Hypokalemia; I48.91 Unspecified atrial fibrillation; I25.10 Atherosclerotic heart disease of native coronary artery without angina pectoris; J44.9 Chronic obstructive pulmonary disease, unspecified; I12.9 Hypertensive chronic kidney disease with stage 1 through stage 4 chronic kidney disease, or unspecified chronic kidney disease; N18.9 Chronic kidney disease, unspecified; E78.5 Hyperlipidemia, unspecified; M10.9 Gout, unspecified; Z79.899 Other long term (current) drug therapy; Z68.32 Body mass index [BMI] 32.0-32.9, adult; Z87.19 Personal history of other diseases of the digestive system
CPT/HCPCS: 36415; 71045; 80048; 80053; 81001; 82274; 84484; 85025; 85027; 86850; 86900; 86901; 86920; 86922; 87077; 87086; 87088; 87186; 87426; 93005; 97162; 97165; 99285; J7030; J7040; J7050; P9016; A4216; J2405; J2916

== ENCOUNTER → 2020-07-22 | Outpatient (CLI) | payer OTHER, SELFPAY ==
[2020-07-22 17:31] LABS: Absolute Lymphocyte Count 0.31 X10^3/uL (0.83-4.51); Absolute Neutrophil Count 4.7 X10^3/uL (2.0-7.7); Basophil# 0.03 X10^3/uL; Basophil% 0.5 % (0-1); Eosinophil# 0.07 X10^3/uL; Eosinophils% 1.2 % (0-5); Hematocrit 27.6 % (37-47); Hemoglobin 7.8 g/dL (12.0-15.0); Lymphocyte # 0.31 X10^3/ul (4.0); Lymphocyte % 5.3 % (19-41); Mean Corp Hgb Conc 28.3 g/dL (32-36); Mean Corpuscular Hgb 25.2 pg (27.0-32.0); Mean Platelet Vol. 10.4 fl (6.2-12.0); Monocyte# 0.66 X10^3/uL; Monocyte% 11.3 % (0-10); NRBC Flagged by Analyzer 0 % (0-5); Neutrophil # 4.74 X10^3/uL (2.7-7.7); Neutrophil % 81.2 % (47-70); POSITIVE DIFFERENTIAL YES; Platelet Count 264 K/mm3 (150-450); RBC Distribution Width CV 15.4 % (11.6-14.6); RBC Distribution Width SD 49.1 fl (35.1-43.9); White Blood Count 5.8 K/mm3 (4.4-11.0)
[2020-07-22 17:34] LABS: Differential Indicated SCAN CRITERIA MET
[2020-07-22 18:44] LABS: Hypochromasia 1+; Platelet Estimate ADEQUATE (ADEQ); Red Cell Morphology N CYTIC NORMAL (NORM C&C)
== END | disposition home or self-care (01) ==
LOC: LABSPEC 16:42
PROVIDERS: PCP Family Medicine; Referring Provider Physician Assistant; Visit Provider Physician Assistant
DX: N18.30 Chronic kidney disease, stage 3 unspecified (principal)
CPT/HCPCS: 85025

== ENCOUNTER 2020-08-09 13:38 | Inpatient (IN) | payer OTHER, SELFPAY ==
[2020-08-09] VITALS (15 sets, daily range): BP systolic 139–160; BP diastolic 50–86; PULSE 64–103; RESP 18–20; TEMP 36.1–37.1; O2SAT 93–98; BMI 32.3; BMI 30.8; BMI 30.9
--- NOTE | 2020-08-09 14:22 | EKG12_ITS ---
Test Reason : ABN LABS Blood Pressure : / mmHG Vent. Rate : 084 BPM Atrial Rate : 084 BPM P-R Int : 202 ms QRS Dur : 094 ms QT Int : 398 ms P-R-T Axes : 069 -02 090 degrees QTc Int : 470 ms Sinus rhythm with Premature supraventricular complexes and Premature ventricular complexes or Fusion complexes Nonspecific ST and T wave abnormality Abnormal ECG Confirmed by BRADY DICKERSON, SORAYA ([id number]), editor in chief ALICIA CORDERO ([id number]) on 08/12/2020 1:46:39 PM Referred By: YOANA Confirmed By:SORAYA ABREU MD
--- NOTE | 2020-08-09 14:23 | ED.DCSUM_ITS ---
- ER Visit Summary Date of Service: 08/09/20 Chief Complaint: Shortness of breath and anemia History of Present Illness: The patient is a 75 F who presents with shortness of breath that has been getting worse over the past 5 days. Patient was recently seen in the hospital in May. Patient was noted to have a hemoglobin of seven at that time. Patient had an appoint with her rail flaw detector operator/oncologist today but her breathing became worse and she was referred to the emergency department. Patient states she feels short of breath. Patient states it is worse with any exertion. Patient also feels weak. Patient denies any melena or hematochezia. Patient denies any cough. Patient denies any fevers or chills. Patient does admit to a mild sore throat but states that it feels dry. Patient denies any chest pain. Patient denies any nausea or vomiting. Physical Examination: Vital signs are stable. Patient is afebrile. Patient is in no acute distress. Oral mucosa is pink and moist. Neck is supple. Trachea is midline. There is no JVD noted. Heart was regular rate and rhythm. Lungs are clear and equal bilaterally. Abdomen is soft. Bowel sounds are normal. There is no tenderness. There is no rebound or guarding noted. Skin is warm dry. Cranial nerves II through XII are intact. There are no focal motor or sensory deficits noted. Extremities are intact. There is no calf tenderness or edema. Test Results: EKG was obtained. On my interpretation, it showed normal sinus rhythm with a rate of 84. There are occasional PVCs noted. There are nonspecific ST-T wave changes that were unchanged compared to previous EKG dated 04/17/2020. Portable chest x-ray was obtained. There is 1 view. On my interpretation, there is some mild congestion and congestive heart failure. There is bibasilar atelectasis. Bony thorax is normal. There is no pneumothorax. Vehicle Safety Inspector also interpreted the x-ray and agrees. CBC shows a hemoglobin of 7.4 and hematocrit 25.0. Comprehensive metabolic profile showed BUN of 39 and creatinine of 2.39. These are unchanged compared to previous results. PT with INR and PTT were within normal limits. Urinalysis shows a leukocyte Estrace of 500 with 25-50 white blood cells. BNP was elevated at 505 .6. D-dimer was elevated at 4.82. Emergency Department Course and Treatment: Patient was given a dose of Lasix here. Patient was given a dose of Keflex for her urinary tract infection. Because of her renal transplant and elevated creatinine, I do not feel that CTA of her chest is necessary at this time even though her D-dimer is elevated. If she is still having shortness of breath after she has been diuresed then perhaps a VQ scan may be necessary at that time. Case was discussed with the hospitalist. He will admit the patient to his service. Patient understood and was agreeable with the plan. All questions were answered. Disposition: Admit to hospital Impression: 1. Congestive heart failure 2. Urinary tract infection This note was generated with [employer] dictation software. It may contain incorrect words, spelling, and punctuation that were not noted in review of the chart prior to signing ED Disposition - Plan for ED Patient: Disposition: Acute Care Hospital [facility] Diagnosis: Congestive heart failure (CHF), Urinary tract infection Referrals: Hamilton Armstrong MD [Primary Care Provider] -
[2020-08-09 14:59] LABS: Absolute Lymphocyte Count 0.27 X10^3/uL (0.83-4.51); Absolute Neutrophil Count 9.1 X10^3/uL (2.0-7.7); Basophil# 0.02 X10^3/uL; Basophil% 0.2 % (0-1); Eosinophil# 0.01 X10^3/uL; Eosinophils% 0.1 % (0-5); Hemoglobin 7.4 g/dL (12.0-15.0); Lymphocyte # 0.27 X10^3/ul (4.0); Lymphocyte % 2.7 % (19-41); Mean Corp Hgb Conc 29.6 g/dL (32-36); Mean Corpuscular Hgb 26.1 pg (27.0-32.0); Mean Platelet Vol. 10.2 fl (6.2-12.0); Monocyte# 0.63 X10^3/uL; Monocyte% 6.3 % (0-10); NRBC Flagged by Analyzer 0 % (0-5); Neutrophil # 9.05 X10^3/uL (2.7-7.7); Neutrophil % 89.8 % (47-70); POSITIVE DIFFERENTIAL YES; Platelet Count 231 K/mm3 (150-450); RBC Distribution Width CV 15.1 % (11.6-14.6); RBC Distribution Width SD 48.6 fl (35.1-43.9); Red Blood Count 2.84 M/mm3 (4.2-5.4); White Blood Count 10.1 K/mm3 (4.4-11.0)
--- NOTE | 2020-08-09 15:08 | RAD_ITS ---
STUDY: X-RAY CHEST REASON FOR EXAM: Female, 75 years old. Shortness of breath . Weakness. TECHNIQUE: Single AP portable view of the chest. COMPARISON: Comparison is made with prior study dated 04/17/2020. FINDINGS: EKG electrodes are seen. There is evidence of gastric congestion and mild CHF with bibasilar atelectasis. There is no demonstrated pleural abnormality. There is mild cardiac enlargement. Normal mediastinum and lex. Normal visualized pulmonary arteries. There is atherosclerotic calcification of the aortic arch with tortuosity. Normal visualized thoracic spine. Normal visualized ribs, clavicles, and shoulders. There is no demonstrated abnormality of the visualized soft tissue structures of the upper abdomen. RAD/Chest 1 View (Portable) IMPRESSION: Vascular congestion and mild CHF with bibasilar atelectasis. Electronically Signed: Enrique Daily MD at 15:32 EDT , Service support ,
[2020-08-09 15:09] LABS: Differential Indicated SCAN CRITERIA MET
[2020-08-09 15:10] LABS: International Normalized Ratio 1.3; Partial Thromboplast Time 31.3 Seconds (24.1-36.2); Prothrombin Time (Protime)PT. 15.5 SECONDS (11.7-14.9)
[2020-08-09 15:16] LABS: ALB/GLOB Ratio 0.9 RATIO (0.9-2.4); AST(SGOT) 22 U/L (15-37); Alanine Aminotransfer ALT/SGPT 14 U/L (13-56); Alkaline Phosphatase 63 U/L (45-117); Anion Gap 8 (5-15); BUN 39 mg/dL (7-18); BUN/Creat Ratio 16.3 RATIO (10-20); Calcium,Total 8.7 mg/dL (8.5-10.1); Chloride 105 mmol/L (98-107); Creatinine, Serum 2.39 mg/dL (0.55-1.02); EST Glomerular Filtration Rate 21 mL/min (>60); Est Glom Filt Rate - Afr Amer 26 mL/min (>60); Estimated Creatinine Clearance 19.63 ml/min; Globulin 3.2 g/dL (2.2-4.2); Glucose 150 mg/dL (74-106); Potassium 4.3 mmol/L (3.5-5.1); Protein, Total 6.2 g/dL (6.4-8.2); Sodium Level 134 mmol/L (136-145)
[2020-08-09 15:24] LABS: D-Dimer Quantitative (DVT/PE) 4.82 FEU/ug/m (0.27-0.49)
[2020-08-09 15:45] LABS: Platelet Estimate ADEQUATE (ADEQ); Red Cell Morphology N CHROM NORMAL (NORM C&C)
[2020-08-09 15:46] LABS: Ovalocyte 1+
[2020-08-09 15:46] LABS: Mucous, Urine 0 SEEN /hpf (<or=2+); Red Blood Cells-Urine 0 SEEN /hpf (0-5); Squamous Epithelial Cells - UA 0 SEEN /hpf (5-10)
[2020-08-09 16:04] LABS: Color, Urine Yellow (Yellow); Glucose, Dipstick Normal (Normal); Ketone-Dipstick Negative (Negative); Leukocyte Esterase-Dipstick 500 /ul (Negative); Nitrite-Dipstick Negative (Negative); Occult Blood-Urine 25 /ul (Negative); Protein-Dipstick 100 mg/dl (Negative); Specific Gravity, Urine 1.015 (1.002-1.030); Urine Bilirubin Dipstick Negative (Negative); Urine Clarity Sl. Cloudy (Clear); Urine Urobilinogen Normal (Normal)
[2020-08-09 16:55] LABS: Bacteria 1+ /hpf (None Seen); White Blood Cells 25-50 SEEN /hpf (0-5)
[2020-08-09 16:58] LABS: BNP,B-Type NATRIURETIC PEPTIDE 505.6 pg/mL (0-100)
--- NOTE | 2020-08-09 17:13 | PCM.HP.STD ---
<Danitza Flores MASTER CHEF - Last Filed: 08/09/20 17:32> Problem List (1) Generalized weakness Status: Acute (2) Shortness of breath Status: Acute History of Present Illness Date of Admission: 08/09/20 Chief Complaint: Shortness of breath, weakness. The patient is a 75 year old F who presents to the emergency room due to shortness of breath and worsening weakness x1 week. Patient states she was seen at outside ER yesterday and her heart rate was noted to be elevated. She states her heart rate was treated and her blood count was noted to be low however she was discharged as she was to have follow up with Dr. Arroyo, hematology today. Due to her symptoms, she was referred to the emergency room for further treatment evaluation. Patient states she becomes short of breath with minimal exertion and has become increasingly weak. She reports pale appearance. Denies abdominal pain. Denies nausea, vomiting, diarrhea. Denies blood in stool or black stools. She has a past medical history of chronic normocytic anemia and follows with hematology, chronic kidney disease with history of renal transplant 2009, hypertension, hyperlipidemia, gout. Past Medical History Past Medical History (Chronic Problems): Chronic Problems CKD stage IV (Chronic) Allergies No Known Allergies Allergy (Verified 08/09/20 13:42) Home Medications: Ambulatory Orders Medication Instructions Recorded Magnesium Oxide [Mag-Ox 400] 400 mg PO DAILY 01/19/14 Mycophenolate Mofetil [Cellcept] 750 mg PO BID 01/19/14 Simvastatin [Zocor] 20 mg PO QHS 01/19/14 Amlodipine [Norvasc] 10 mg PO DAILY 04/17/20 Chlorthalidone 25 mg PO DAILY 04/17/20 Cholecalciferol (Vitamin D3) 2,000 unit PO DAILY 04/17/20 [Vitamin D3] Metoprolol Tartrate 12.5 mg PO BID 04/17/20 Prednisone 5 mg PO DAILY 04/17/20 Sulfamethoxazole/Trimethoprim 1 tab PO DAILY 04/17/20 [Sulfamethoxazole-Tmp Ss Tablet] Tacrolimus 0.5 mg PO DINNER 04/17/20 Tacrolimus 1 mg PO BREAKFAST 04/17/20 Ferrous Sulfate 325 mg PO BID #60 tab 04/20/20 Epoetin Angel [Epogen] 20,000 unit IJ QWEEK 08/09/20 Surgical History: cataract, - - Kidney transplantation 2009 Psychiatric History: No pertinent psych hx CLEANING ATTENDANT History: No pertinent CLEANING ATTENDANT history Lives: With Family Smoking Status: Never smoker Alcohol: None Drugs: None - *Family History Maternal History Items: Cancer, Renal Disease Paternal History Items: Stroke Review of Systems Constitutional: Reports: Weakness, Fatigue. Denies: Chills, Fever, Weight Change HEENT: Denies: Head Aches, Sinus Congestion, Sinus Drainage Cardiovascular: Denies: Chest Pain, Edema, Palpitations Respiratory: Reports: Shortness of Breath. Denies: Cough, Sputum production Gastrointestinal: Denies: Abdominal Pain, Nausea, Vomiting Genitourinary: Denies: Dysuria Musculoskeletal: Denies: Joint Pain, Joint Tenderness Skin: Denies: Rash, Wounds Neurological: Denies: Numbness, Tingling, Focal weakness Psychiatric: Denies: Anxiety, Depression, Homicidal Ideations, Suicidal Ideations Hematologic/ Lymphatic: Denies: Easy Bruising, Easy Bleeding VTE Information - Inpt Only VTE Present on Admission: No VTE Mechan Device Prophylaxis: SCD's VTE Pharm Prophylaxis ordered?: No Reason prophylaxis not ordered:: Medical Contraindication - Physical Exam Vitals/I&O's: Vital Signs Temp Pulse Resp BP Pulse Ox 97.8 F 81 18 151/86 H 98 08/09/20 13:39 08/09/20 15:38 08/09/20 15:38 08/09/20 15:38 08/09/20 15:38 Oxygen Delivery Method Room Air Weight: 200 lb Body Mass Index (BMI) 32.3 General: Alert, Oriented x3, Cooperative, - - Pale appearing, fatigued appearing HEENT: Atraumatic, PERRLA, EOMI, Normocephalic Neck: Supple, No JVD, Negative Carotid Bruits Lungs: Clear to auscultation, Diminished Cardiovascular: Regular rate, No murmurs Abdomen: Bowel Sounds Present, Soft, Non Tender, Non-Distended Extremities: No clubbing, No cyanosis, Capillary Refill Less than 3 Seconds, Edema - Trace edema bilateral lower extremities Skin: No rashes, No breakdown Musculoskeletal: No Tenderness to Palpation of Joints or Extremities Neurological: Cranial nerves II-XII grossly intact, Neuro grossly intact Psych/Mental Status: Normal Affect, Appropriate Microbiology Past 72 Hours 08/09/20 14:36 Mucosa - Nose SARS-CoV-2 Antigen (Rapid) - Final Laboratory Results 08/09/20 14:36: WBC 10.1, RBC 2.84 L, Hgb 7.4 L, Hct 25.0 L, MCV 88.0, MCH 26.1 L, MCHC 29.6 L, RDW Std Deviation 48.6 H, RDW Coeff of Rhys 15.1 H, Plt Count 231, MPV 10.2, Immature Gran % (Auto) 0.900, Neut % (Auto) 89.8 H, Lymph % (Auto) 2.7 L, [place] % (Auto) 6.3, Eos % (Auto) 0.1, Baso % (Auto) 0.2, Absolute Neuts (auto) 9.1 H, Absolute Lymphs (auto) 0.27 L, Nucleated RBC % 0, Differential Comment , Platelet Estimate ADEQUATE, RBC Morphology N CHROM, Ovalocytes 1+ 08/09/20 14:36: PT 15.5 H, INR 1.3, APTT 31.3, D-Dimer Quant (PE/DVT) 4.82 H* 08/09/20 14:36: Sodium 134 L, Potassium 4.3, Chloride 105, Carbon Dioxide 21.0, Anion Gap 8, BUN 39 H, Creatinine 2.39 H, Estim Creat Clear Calc 19.63, Est GFR (MDRD) Af Amer 26 L, Est GFR (MDRD) Non-Af 21 L, BUN/Creatinine Ratio 16.3, Glucose 150 H, Calcium 8.7, Total Bilirubin 0.50, AST 22, ALT 14, Alkaline Phosphatase 63, Troponin I < 0.015, Total Protein 6.2 L, Albumin 3.0 L, Globulin 3.2, Albumin/Globulin Ratio 0.9 08/09/20 14:36: B-Natriuretic Peptide 505.6 H 08/09/20 15:36: Urine Color Yellow, Urine Clarity Sl. Cloudy, Urine pH 6.0, Ur Specific [place] 1.015, Urine Protein 100 H, Urine Glucose (UA) Normal, Urine Ketones Negative, Urine Occult Blood 25 H, Urine Nitrite Negative, Urine Bilirubin Negative, Urine Urobilinogen Normal, Ur Leukocyte Esterase 500 H, Urine RBC 0 SEEN, Urine WBC 25-50 SEEN, Ur Squamous Epith Cells 0 SEEN, Urine Bacteria 1+, Urine Mucus 0 SEEN Assessment/Plan All Active Problems Generalized weakness (Acute) Shortness of breath (Acute) Acute on chronic diastolic heart failure (Acute) Status post renal transplant (Acute) Acute on chronic anemia (Acute) 1. Acute on chronic normocytic anemia-Baseline hemoglobin around 9. 1 unit PRBC for hemoglobin 7.4. Check stool for occult blood. Patient had upper and lower scope June 2019 at outside facility which demonstrated diverticular bleed. She states she was on Coumadin for atrial fibrillation which was discontinued at that time. She followa with hematology, Dr. Arroyo for ongoing anemia and has received iron transfusions in the past. Trend H&H. PPI. Patient also still follows with receptionist doctor's office, Dr. Araya. 2. Acute heart failure, unknown subtype-chest x-ray with congestion. BNP greater than 500. Obtain echocardiogram. IV Lasix 40 mg daily. Strict I&O. Daily weight. 3. Chronic kidney disease stage IV, history of renal transplant 2009-Appears at baseline. Continue antirejection regimen. 4. Elevated D-dimer-no risk factors for DVT/PE. Suspect secondary to CKD. 5. Hypertension-stable, continue amlodipine, metoprolol with hold parameters. 6. Hyperlipidemia-continue statin. 7. Gout-uses as needed prednisone at home. DVT prophylaxis-SCDs CODE STATUS: Full code, discussed with patient. This patient was seen by GRANT Hopper under the supervision of Dr. Covarrubias. <Dat Covarrubias - Last Filed: 08/09/20 17:54> Problem List (1) Acute on chronic diastolic heart failure Status: Acute (2) CKD stage IV Status: Chronic (3) Status post renal transplant Status: Acute (4) Acute on chronic anemia Status: Acute History of Present Illness The patient is a 75 year old F with multiple comorbidities including renal allograft transplant [facility] with history of ESRD came to ED for shortness of breath, progressive weakness for 1 week. Patient stated she gets dizzy, lightheaded on walking. Dyspnea on exertion. Denies chest pain, pressure. She has bilateral lower extremity edema but denies weight gain. Actually, she lost 10 pounds in last 1 month. Patient hemoglobin has been low about 7.3 since July 17 as per [facility] outpatient labs. She gets regular iron infusion by Dr. Arroyo, last one about 4 days ago on Wednesday. H&H 7.4/25. Platelet count 231. Patient BUN/creatinine slightly elevated, 39/2.39 from her baseline creatinine 2.20. Denies hematochezia, melena or hematemesis although her stool for occult blood was positive in April 2020. UA shows pyuria 25-50 cells but was also elevated in April 2020 when she grew Klebsiella oxytoca. She is on Bactrim DS half tablet daily. She also got Keflex 500 mg 1 tablet and Lasix 40 mg IV 1 dose in ED. Rest as mentioned above regarding her outside ER visit yesterday and tachycardia. Currently her heart rate is controlled, 8129 bpm, sinus rhythm. Past Medical History Allergies No Known Allergies Allergy (Verified 08/09/20 13:42) Objective: General: Alert, Oriented x3, Cooperative, mild short of breath at rest HEENT: Atraumatic, PERRLA, EOMI, Normocephalic Oral: No Gingival or Mucosal Lesions/ Ulcerations Neck: Supple, No JVD, Negative Carotid Bruits Lungs: Air entry diminished in bilateral lung bases. Mild bilateral crepitations. No hypoxia/tachypnea Cardiovascular: Regular rate, Regular Rhythm, Normal S1, Normal S2, No murmurs Abdomen: Bowel Sounds Present, Soft, Non Tender, Non-Distended : RLQ renal allograft. No acute decrease in urine output. No renal angle tenderness. No suprapubic tenderness. Extremities: Lateral lower leg edema, pitting type. Capillary Refill Less than 3 Seconds Skin: No rashes, No breakdown Musculoskeletal: No Tenderness to Palpation of Joints or Extremities Neurological: Cranial nerves II-XII grossly intact, Deep Tendon Reflexes 2+/4 and Symmetrical, Neuro grossly intact Psych/Mental Status: Normal Affect, Appropriate. - Physical Exam Vitals/I&O's: Vital Signs Temp Pulse Resp BP Pulse Ox 97.8 F 103 H 18 150/61 H 96 08/09/20 13:39 08/09/20 17:00 08/09/20 17:00 08/09/20 17:00 08/09/20 17:00 Oxygen Delivery Method Room Air Weight: 200 lb Body Mass Index (BMI) 32.3 Microbiology Past 72 Hours 08/09/20 14:36 Mucosa - Nose SARS-CoV-2 Antigen (Rapid) - Final Laboratory Results 08/09/20 14:36: WBC 10.1, RBC 2.84 L, Hgb 7.4 L, Hct 25.0 L, MCV 88.0, MCH 26.1 L, MCHC 29.6 L, RDW Std Deviation 48.6 H, RDW Coeff of Rhys 15.1 H, Plt Count 231, MPV 10.2, Immature Gran % (Auto) 0.900, Neut % (Auto) 89.8 H, Lymph % (Auto) 2.7 L, [place] % (Auto) 6.3, Eos % (Auto) 0.1, Baso % (Auto) 0.2, Absolute Neuts (auto) 9.1 H, Absolute Lymphs (auto) 0.27 L, Nucleated RBC % 0, Differential Comment , Platelet Estimate ADEQUATE, RBC Morphology N CHROM, Ovalocytes 1+ 08/09/20 14:36: PT 15.5 H, INR 1.3, APTT 31.3, D-Dimer Quant (PE/DVT) 4.82 H* 08/09/20 14:36: Sodium 134 L, Potassium 4.3, Chloride 105, Carbon Dioxide 21.0, Anion Gap 8, BUN 39 H, Creatinine 2.39 H, Estim Creat Clear Calc 19.63, Est GFR (MDRD) Af Amer 26 L, Est GFR (MDRD) Non-Af 21 L, BUN/Creatinine Ratio 16.3, Glucose 150 H, Calcium 8.7, Total Bilirubin 0.50, AST 22, ALT 14, Alkaline Phosphatase 63, Troponin I < 0.015, Total Protein 6.2 L, Albumin 3.0 L, Globulin 3.2, Albumin/Globulin Ratio 0.9 08/09/20 14:36: B-Natriuretic Peptide 505.6 H 08/09/20 15:36: Urine Color Yellow, Urine Clarity Sl. Cloudy, Urine pH 6.0, Ur Specific [place] 1.015, Urine Protein 100 H, Urine Glucose (UA) Normal, Urine Ketones Negative, Urine Occult Blood 25 H, Urine Nitrite Negative, Urine Bilirubin Negative, Urine Urobilinogen Normal, Ur Leukocyte Esterase 500 H, Urine RBC 0 SEEN, Urine WBC 25-50 SEEN, Ur Squamous Epith Cells 0 SEEN, Urine Bacteria 1+, Urine Mucus 0 SEEN Assessment/Plan This patient was seen in conjunction with MASTER CHEFDanitza. I have independently interviewed and examined the patient and reviewed pertinent history, examination findings, laboratory and plan of management. I have reviewed the note and agree with the documented findings with the few additional points. In brief, patient is 75-year-old female with multiple comorbidities came to ER for shortness of breath and low hemoglobin 7.4. Her hemoglobin has been low since being in August 04 although her baseline is about 9 g%. Chest x-ray individually reviewed and shows mild weakness congestion. Started on Lasix 40 g IV daily in view of kidney dysfunction. 1 unit of PRBC transfusion ordered with Lasix as needed for fluid overload/swelling shortness of breath. Stool for occult blood ordered. Acute kidney injury on CKD stage IV status post renal allograft: Titrate Lasix as per fluid hemodynamics and kidney function. Atkins nephrology consult. Immunosuppression medications tacrolimus, CellCept, prednisone regimen. She is also on Bactrim DS, half tablet daily. Tacrolimus level tomorrow a.m. Serum magnesium, phosphorus. Elevated D-dimer: Modified Wells criteria was done and calculated is 0 and discussed with the ER physician. In view of GENE on CKD stage IV and patient does not have obvious risk factors for DVT/PE, it does not warrant further CTPA. Other comorbidities as mentioned above Living will/advanced directive/end of life care: Patient does have living will or advanced directive. Her present in the room is power of flooring installer for health. After discussion of benefits/risks procedures involved with full code, DNR CC arrest and DNR CC, the patient opted for full code. Patient does want artificial life support including intubation, tube feed, ventilator and/chest compression, central venous catheter, vasopressor and DC shock if needed Total time spent in [id number] encounter in discussion of advanced directive 16 minutes. I have discussed my assessment with MASTER CHEFDanitza and orders have been reviewed. Inpatient E&M: 21384 Init Hosp L3 Procedures: 35862 Advncd Care Plan 30 Min
--- NOTE | 2020-08-09 17:27 | NURSING ---
FRANK VALLEJO CHF
[2020-08-09] MEDS: Cephalexin 250 MG Capsule 500 MG PO (17:34)
[2020-08-09] MEDS: Furosemide 40 MG/4 ML Vial IV (17:34)
[2020-08-09 19:11] LABS: Magnesium 2.4 mg/dL (1.6-2.6)
[2020-08-09] MEDS: Metoprolol Tartrate 25 MG Tablet 12.5 MG PO (21:06)
[2020-08-09] MEDS: Atorvastatin Calcium 10 MG Tablet PO (21:06)
[2020-08-09] MEDS: Tacrolimus 0.5 MG Capsule PO (21:07)
[2020-08-09] MEDS: Mycophenolate Mofetil 250 MG Capsule 750 MG PO (21:07)
[2020-08-10] VITALS (16 sets, daily range): BP systolic 134–149; BP diastolic 55–68; PULSE 67–78; RESP 12–18; TEMP 36.7–37.2; O2SAT 93–96
--- NOTE | 2020-08-10 05:55 | ECHOD_ITS ---
Reason For Study: HEART FAILURE Procedure This was a 2D Doppler, Color Flow transthoracic echocardiogram. Exam performed portable in patient room. Left Ventricle Normal LV size. Moderate eccentric left ventricular hypertrophy. Left ventricular systolic function is normal. The estimated ejection fraction is 60 %. No regional wall motion abnormalities noted. Right Ventricle Normal RV size. Normal systolic function. Atria Normal left atrium. Normal right atrium. Mitral Valve Normal mitral valve. Tricuspid Valve Normal tricuspid valve. Aortic Valve Trisinus/trileaflet aortic valve. Mild focal aortic valve calcification. Peak aortic valve gradient 23 mmHg. Mean aortic valve gradient 12 mmHg. Pulmonic Valve Normal pulmonic valve. Great Vessels Normal aortic root. The pulmonary artery is normal size. Normal inferior vena cava. Pericardium/Pleural No pericardial effusion. MMode/2D Measurements & Calculations LVIDd: 5.1 cm IVSd: 1.5 cm LVOT diam: 2.0 cm LVIDs: 3.1 cm LVPWd: 1.1 cm LVOT area: 3.0 cm2 RVDd: 4.3 cm FS: 39.1 % Ao root diam: 2.9 cm LAV(MOD-bp): 63.2 ml LA A4 area: 20.3 cm2 LAV(MOD-bp) Indexed: 32.2 ml/m2 LAV(MOD-sp2): 55.2 ml LAV(MOD-sp4): 51.0 ml LA dimension(2D): 4.8 cm RA A4 area: 21.8 cm2 Time Measurements MV dec time: 0.16 sec Doppler Measurements & Calculations MV E max rhett: 119.7 cm/sec Lat Peak E' Rhett: 9.0 cm/sec Med Peak E' Rhett: 12.8 cm/sec MV A max rhett: 62.1 cm/sec E/E' lat: 13.3 E/E' med: 9.3 MV E/A: 1.9 Ao V2 max: 240.3 cm/sec LV V1 max: 155.8 cm/sec SV(LVOT): 104.2 ml Ao max P.1 mmHg LV V1 max P.7 mmHg Ao V2 mean: 163.7 cm/sec LV V1 mean P.1 mmHg Ao mean P.2 mmHg LV V1 mean: 119.4 cm/sec Ao V2 VTI: 51.1 cm LV V1 VTI: 34.5 cm ROGER(I,D): 2.0 cm2 ROGER(V,D): 2.0 cm2 PA V2 max: 143.3 cm/sec ECHO/Echo Complete Interpretation Summary Normal LV size. Moderate eccentric left ventricular hypertrophy. Left ventricular systolic function is normal. The estimated ejection fraction is 60 %. Ordering Physician: Dat Covarrubias Referring Physician: Hamilton Armstrong Performed By: Ninfa Pulliam, ELIA, RVT
[2020-08-10 07:30] LABS: Absolute Lymphocyte Count 0.28 X10^3/uL (0.83-4.51); Absolute Neutrophil Count 5.7 X10^3/uL (2.0-7.7); Basophil# 0.02 X10^3/uL; Basophil% 0.3 % (0-1); Eosinophil# 0.14 X10^3/uL; Eosinophils% 2.1 % (0-5); Hematocrit 26.5 % (37-47); Hemoglobin 7.9 g/dL (12.0-15.0); Lymphocyte # 0.28 X10^3/ul (4.0); Lymphocyte % 4.1 % (19-41); Mean Corp Hgb Conc 29.8 g/dL (32-36); Mean Corpuscular Hgb 26.5 pg (27.0-32.0); Mean Corpuscular Volume 88.9 fL (81-99); Mean Platelet Vol. 10.3 fl (6.2-12.0); Monocyte# 0.62 X10^3/uL; Monocyte% 9.2 % (0-10); NRBC Flagged by Analyzer 0 % (0-5); Neutrophil # 5.66 X10^3/uL (2.7-7.7); Neutrophil % 83.9 % (47-70); POSITIVE DIFFERENTIAL YES; Platelet Count 239 K/mm3 (150-450); RBC Distribution Width CV 14.7 % (11.6-14.6); RBC Distribution Width SD 46.8 fl (35.1-43.9); Red Blood Count 2.98 M/mm3 (4.2-5.4); White Blood Count 6.8 K/mm3 (4.4-11.0)
[2020-08-10 07:59] LABS: Anion Gap 8 (5-15); BUN 44 mg/dL (7-18); BUN/Creat Ratio 18.6 RATIO (10-20); Calcium,Total 8.9 mg/dL (8.5-10.1); Chloride 108 mmol/L (98-107); Cholesterol 114 mg/dL (200); Creatinine, Serum 2.37 mg/dL (0.55-1.02); Differential Indicated SCAN CRITERIA MET; EST Glomerular Filtration Rate 21 mL/min (>60); Est Glom Filt Rate - Afr Amer 26 mL/min (>60); Estimated Creatinine Clearance 19.79 ml/min; Glucose 97 mg/dL (74-106); High Density Lipoprotein 49 mg/dL; Phosphorus 3.8 mg/dL (2.5-4.9); Potassium 3.7 mmol/L (3.5-5.1); Sodium Level 138 mmol/L (136-145); Triglycerides 82 mg/dL; Very Low Density Lipoprotein 16 mg/dL (5-40)
[2020-08-10 08:42] LABS: Differential Comment SCANNED
[2020-08-10] MEDS: Metoprolol Tartrate 25 MG Tablet 12.5 MG PO ×2 (09:21→21:09)
[2020-08-10] MEDS: Cholecalciferol (VIT D3) 25 MCG TABLET (1,000 UNITS) 50 MCG PO (09:21)
[2020-08-10] MEDS: Magnesium Chloride 64 MG Delay Rel.Tablet 128 MG PO (09:21)
[2020-08-10] MEDS: Ferrous Sulfate 325 MG Tablet PO (09:22)
[2020-08-10] MEDS: predniSONE 5 MG Tablet PO (09:22)
[2020-08-10] MEDS: amLODIPine 10 MG Tablet PO (09:22)
[2020-08-10] MEDS: Tacrolimus Anhydrous 1 MG Capsule PO (09:23)
[2020-08-10] MEDS: Mycophenolate Mofetil 250 MG Capsule 750 MG PO ×2 (09:23→21:07)
--- NOTE | 2020-08-10 11:14 | PN_ITS ---
<MarkDanitza BLIND HOOKER - Last Filed: 08/10/20 11:20> Patient Problems: Active and Suspected Problems Generalized weakness (Acute) Shortness of breath (Acute) Acute on chronic diastolic heart failure (Acute) Status post renal transplant (Acute) Acute on chronic anemia (Acute) Congestive heart failure (CHF) (Acute) Urinary tract infection (Acute) Subjective: Patient seen and examined. Reports shortness of breath is improved. Continues to report weakness, fatigue. Denies blood in stool, dark stools. - Physical Exam Vitals/I&O's: Vital Signs Temp Pulse Resp BP Pulse Ox 98.7 F 73 16 139/55 H 93 08/10/20 11:05 08/10/20 11:05 08/10/20 11:05 08/10/20 11:05 08/10/20 11:05 Oxygen Delivery Method Room Air Weight: 188 lb 7.924 oz Body Mass Index (BMI) 30.8 Intake and Output for Last 24 Hours 08/08/20 08/09/20 08/10/20 23:59 23:59 23:59 Intake Total 240 / 240 60 / 60 Output Total 1600 / 1600 1100 / 1100 Balance -1360 / -1360 -1040 / -1040 General: Alert, Oriented x3, Cooperative HEENT: Atraumatic, PERRLA, EOMI, Normocephalic Neck: Supple, No JVD, Negative Carotid Bruits Lungs: Clear to auscultation, Diminished Cardiovascular: Regular rate, Regular Rhythm Abdomen: Bowel Sounds Present, Soft, Non Tender, Non-Distended Extremities: No clubbing, No cyanosis, No edema, Capillary Refill Less than 3 Seconds Skin: No rashes, No breakdown Musculoskeletal: No Tenderness to Palpation of Joints or Extremities Neurological: Cranial nerves II-XII grossly intact, Neuro grossly intact Psych/Mental Status: Normal Affect, Appropriate Microbiology Past 72 Hours 08/09/20 14:36 Mucosa - Nose SARS-CoV-2 Antigen (Rapid) - Final Laboratory Results 08/09/20 14:36: WBC 10.1, RBC 2.84 L, Hgb 7.4 L, Hct 25.0 L, MCV 88.0, MCH 26.1 L, MCHC 29.6 L, RDW Std Deviation 48.6 H, RDW Coeff of Rhys 15.1 H, Plt Count 231, MPV 10.2, Immature Gran % (Auto) 0.900, Neut % (Auto) 89.8 H, Lymph % (Auto) 2.7 L, Becker % (Auto) 6.3, Eos % (Auto) 0.1, Baso % (Auto) 0.2, Absolute Neuts (auto) 9.1 H, Absolute Lymphs (auto) 0.27 L, Nucleated RBC % 0, Differential Comment , Platelet Estimate ADEQUATE, RBC Morphology N CHROM, Ovalocytes 1+ 08/09/20 14:36: PT 15.5 H, INR 1.3, APTT 31.3, D-Dimer Quant (PE/DVT) 4.82 H* 08/09/20 14:36: Sodium 134 L, Potassium 4.3, Chloride 105, Carbon Dioxide 21.0, Anion Gap 8, BUN 39 H, Creatinine 2.39 H, Estim Creat Clear Calc 19.63, Est GFR (MDRD) Af Amer 26 L, Est GFR (MDRD) Non-Af 21 L, BUN/Creatinine Ratio 16.3, Glucose 150 H, Calcium 8.7, Total Bilirubin 0.50, AST 22, ALT 14, Alkaline Phosphatase 63, Troponin I < 0.015, Total Protein 6.2 L, Albumin 3.0 L, Globulin 3.2, Albumin/Globulin Ratio 0.9 08/09/20 14:36: B-Natriuretic Peptide 505.6 H 08/09/20 14:36: Blood Type A POSITIVE, Antibody Screen NEGATIVE, Crossmatch See Detail 08/09/20 14:36: Crossmatch See Detail 08/09/20 15:36: Urine Color Yellow, Urine Clarity Sl. Cloudy, Urine pH 6.0, Ur Specific [place] 1.015, Urine Protein 100 H, Urine Glucose (UA) Normal, Urine Ketones Negative, Urine Occult Blood 25 H, Urine Nitrite Negative, Urine Bilirubin Negative, Urine Urobilinogen Normal, Ur Leukocyte Esterase 500 H, Urine RBC 0 SEEN, Urine WBC 25-50 SEEN, Ur Squamous Epith Cells 0 SEEN, Urine Bacteria 1+, Urine Mucus 0 SEEN 08/09/20 18:24: Magnesium 2.4 08/09/20 18:24: Troponin I 0.016 08/09/20 20:55: Troponin I < 0.015 08/10/20 06:30: WBC 6.8, RBC 2.98 L, Hgb 7.9 L, Hct 26.5 L, MCV 88.9, MCH 26.5 L , MCHC 29.8 L, RDW Std Deviation 46.8 H, RDW Coeff of Rhsy 14.7 H, Plt Count 239, MPV 10.3, Immature Gran % (Auto) 0.400, Neut % (Auto) 83.9 H, Lymph % (Auto) 4.1 L, Becker % (Auto) 9.2, Eos % (Auto) 2.1, Baso % (Auto) 0.3, Absolute Neuts (auto) 5.7, Absolute Lymphs (auto) 0.28 L, Nucleated RBC % 0, Differential Comment SCANNED 08/10/20 06:30: Sodium 138, Potassium 3.7, Chloride 108 H, Carbon Dioxide 22.0, Anion Gap 8, BUN 44 H, Creatinine 2.37 H, Estim Creat Clear Calc 19.79, Est GFR (MDRD) Af Amer 26 L, Est GFR (MDRD) Non-Af 21 L, BUN/Creatinine Ratio 18.6, Glucose 97, Calcium 8.9, Phosphorus 3.8, Triglycerides 82, Cholesterol 114, LDL Cholesterol 49, VLDL Cholesterol 16, HDL Cholesterol 49 08/10/20 06:30: Tacrolimus Pending Current Medications Acetaminophen (Acetaminophen 325 Mg Tablet) 650 mg PO Q6H PRN PRN PRN Reason: Pain Score 1-10/Temp > 100.7 F Amlodipine Besylate (Amlodipine 10 Mg Tablet) 10 mg PO DAILY [facility] Last Admin: 08/10/20 09:22 Dose: 10 mg Documented by: Atorvastatin Calcium (Atorvastatin Calcium 10 Mg Tablet) 10 mg PO QHS [facility] Last Admin: 08/09/20 21:06 Dose: 10 mg Documented by: Cholecalciferol (Cholecalciferol (Vit D3) 25 Mcg Tablet (1,000 Units)) 50 mcg PO DAILY [facility] Last Admin: 08/10/20 09:21 Dose: 50 mcg Documented by: Ferrous Sulfate (Ferrous Sulfate 325 Mg Tablet) 325 mg PO [facility] Last Admin: 08/10/20 09:22 Dose: 325 mg Documented by: Furosemide (Furosemide 40 Mg/4 Ml Vial) 40 mg IV DAILY [facility] Furosemide (Furosemide 40 Mg/4 Ml Vial) 40 mg IV X1 PRN PRN Reason: Fluid overload during PRBC tra Sodium Chloride () 500 mls @ 15 mls/hr IV PRN PRN PRN Reason: Blood Transfusion Sodium Chloride () 250 mls @ 15 mls/hr IV .[id number] PRN PRN Reason: Saline Flush Sodium Chloride () 250 mls @ 15 mls/hr IV .[id number] PRN PRN Reason: Additional IVPB Infusion Magnesium Chloride (Magnesium Chloride 64 Mg Delay Rel.Tablet) 128 mg PO DAILY [facility] Last Admin: 08/10/20 09:21 Dose: 128 mg Documented by: Melatonin (Melatonin 3 Mg Tablet) 3 mg PO QHS PRN PRN PRN Reason: INSOMNIA Metoprolol Tartrate (Metoprolol Tartrate 25 Mg Tablet) 12.5 mg PO BID [facility] Last Admin: 08/10/20 09:21 Dose: 12.5 mg Documented by: Morphine Sulfate (Morphine 2 Mg/Ml Syringe) 2 mg IV Q3H PRN PRN PRN Reason: Pain Score 6-10 Mycophenolate Mofetil (Mycophenolate Mofetil 250 Mg Capsule) 750 mg PO BID [facility] Last Admin: 08/10/20 09:23 Dose: 750 mg Documented by: Nitroglycerin (Nitroglycerin (Inpatient Use) 0.4 Mg Tab.Subl) 0.4 mg SL Q5M PRN PRN Reason: CARDIAC/CHEST PAIN Nutritional Formula (Lactose Free) (Ensure Enlive 120 Ml Liquid) 120 ml PO 4X/DAY [facility] Last Admin: 08/10/20 09:24 Dose: Not Given Documented by: Oxycodone HCl (Oxycodone 5 Mg Tablet) 5 mg PO Q4H PRN PRN PRN Reason: Pain Score 4-5 Prednisone (Prednisone 5 Mg Tablet) 5 mg [facility]ILY[facility] Last Admin: 08/10/20 09:22 Dose: 5 mg Documented by: Prochlorperazine Edisylate (Prochlorperazine 10 Mg/2 Ml Vial) 5 mg IV Q4H PRN PRN PRN Reason: Breakthrough Nausea/Vomiting Senna/Docusate Sodium (Senna/Docusate Sodium 1 Tablet) 2 tablet PO BID PRN PRN PRN Reason: Constipation Sodium Chloride (0.9% Saline Lock 10 Ml Syringe) 10 - 40 ml IV UD PRN PRN Reason: SALINE FLUSH Tacrolimus (Tacrolimus Anhydrous 1 Mg Capsule) 1 mg PO BREAKFAST [facility] Last Admin: 08/10/20 09:23 Dose: 1 mg Documented by: Tacrolimus (Tacrolimus 0.5 Mg Capsule) 0.5 mg PO DINNER [facility] Last Admin: 08/09/20 21:07 Dose: 0.5 mg Documented by: Trimethoprim/Sulfamethoxazole (Smz/Tmp Ds Tablet) 0.5 tablet PO [id number] [facility] Medical Necessity - Tobacco Use Smoking Status: Never smoker Tobacco Use: Non-smoker Assessment/Plan All Active Problems Generalized weakness (Acute) Shortness of breath (Acute) Acute on chronic diastolic heart failure (Acute) Status post renal transplant (Acute) Acute on chronic anemia (Acute) Congestive heart failure (CHF) (Acute) Urinary tract infection (Acute) 1. Acute on chronic normocytic anemia- Patient had upper and lower scope June 2019 at outside facility which demonstrated diverticular bleed. She states she was on Coumadin for atrial fibrillation which was discontinued at that time. She follows with hematology, Dr. Arroyo for ongoing anemia and has rece ived iron transfusions in the past. Patient also still follows with licensed mental health professional, Dr. Araya. Check stool for occult blood. Additional unit PRBC ordered. Trend CBC. PPI. PT/OT. 2. Acute heart failure with preserved ejection fraction-chest x-ray with congestion. BNP greater than 500. Echocardiogram demonstrates an EF of 60%, moderate left ventricular hypertrophy. IV Lasix 40 mg daily. Strict I&O. Daily weight. 3. Chronic kidney disease stage IV, history of renal transplant 2009-Appears at baseline. Continue antirejection regimen. 4. Elevated D-dimer-no risk factors for DVT/PE. Suspect secondary to CKD. 5. Hypertension-stable, continue amlodipine, metoprolol with hold parameters. 6. Hyperlipidemia-continue statin. 7. Gout-uses as needed prednisone at home. DVT prophylaxis-SCDs This patient was seen by GRANT Hopper under the supervision of Dr. Munoz. <Eliecer Munoz F - Last Filed: 08/10/20 14:12> - Physical Exam Vitals/I&O's: Vital Signs Temp Pulse Resp BP Pulse Ox 98.1 F 73 14 142/65 H 94 08/10/20 13:20 08/10/20 13:20 08/10/20 13:20 08/10/20 13:20 08/10/20 13:20 Oxygen Delivery Method Room Air Weight: 188 lb 7.924 oz Body Mass Index (BMI) 30.8 Intake and Output for Last 24 Hours 08/08/20 08/09/20 08/10/20 23:59 23:59 23:59 Intake Total 240 / 240 60 / 60 Output Total 1600 / 1600 1100 / 1100 Balance -1360 / -1360 -1040 / -1040 Microbiology Past 72 Hours 08/10/20 09:30 Stool Stool Occult Blood (EBONY) - Final Occult Blood Positive 08/09/20 14:36 Mucosa - Nose SARS-CoV-2 Antigen (Rapid) - Final Laboratory Results 08/09/20 14:36: WBC 10.1, RBC 2.84 L, Hgb 7.4 L, Hct 25.0 L, MCV 88.0, MCH 26.1 L, MCHC 29.6 L, RDW Std Deviation 48.6 H, RDW Coeff of Rhys 15.1 H, Plt Count 231, MPV 10.2, Immature Gran % (Auto) 0.900, Neut % (Auto) 89.8 H, Lymph % (Auto) 2.7 L, Becker % (Auto) 6.3, Eos % (Auto) 0.1, Baso % (Auto) 0.2, Absolute Neuts (auto) 9.1 H, Absolute Lymphs (auto) 0.27 L, Nucleated RBC % 0, Differential Comment , Platelet Estimate ADEQUATE, RBC Morphology N CHROM, Ovalocytes 1+ 08/09/20 14:36: PT 15.5 H, INR 1.3, APTT 31.3, D-Dimer Quant (PE/DVT) 4.82 H* 08/09/20 14:36: Sodium 134 L, Potassium 4.3, Chloride 105, Carbon Dioxide 21.0, Anion Gap 8, BUN 39 H, Creatinine 2.39 H, Estim Creat Clear Calc 19.63, Est GFR (MDRD) Af Amer 26 L, Est GFR (MDRD) Non-Af 21 L, BUN/Creatinine Ratio 16.3, Glucose 150 H, Calcium 8.7, Total Bilirubin 0.50, AST 22, ALT 14, Alkaline Phosphatase 63, Troponin I < 0.015, Total Protein 6.2 L, Albumin 3.0 L, Globulin 3.2, Albumin/Globulin Ratio 0.9 03/26/21 14:36: B-Natriuretic Peptide 505.6 H 08/09/20 14:36: Blood Type A POSITIVE, Antibody Screen NEGATIVE, Crossmatch See Detail 08/09/20 14:36: Crossmatch See Detail 08/09/20 15:36: Urine Color Yellow, Urine Clarity Sl. Cloudy, Urine pH 6.0, Ur Specific [place] 1.015, Urine Protein 100 H, Urine Glucose (UA) Normal, Urine Ketones Negative, Urine Occult Blood 25 H, Urine Nitrite Negative, Urine Bilirubin Negative, Urine Urobilinogen Normal, Ur Leukocyte Esterase 500 H, Urine RBC 0 SEEN, Urine WBC 25-50 SEEN, Ur Squamous Epith Cells 0 SEEN, Urine Bacteria 1+, Urine Mucus 0 SEEN 08/09/20 18:24: Magnesium 2.4 08/09/20 18:24: Troponin I 0.016 08/09/20 20:55: Troponin I < 0.015 08/10/20 06:30: WBC 6.8, RBC 2.98 L, Hgb 7.9 L, Hct 26.5 L, MCV 88.9, MCH 26.5 L , MCHC 29.8 L, RDW Std Deviation 46.8 H, RDW Coeff of Rhys 14.7 H, Plt Count 239, MPV 10.3, Immature Gran % (Auto) 0.400, Neut % (Auto) 83.9 H, Lymph % (Auto) 4.1 L, Becker % (Auto) 9.2, Eos % (Auto) 2.1, Baso % (Auto) 0.3, Absolute Neuts (auto) 5.7, Absolute Lymphs (auto) 0.28 L, Nucleated RBC % 0, Differential Comment SCANNED 08/10/20 06:30: Sodium 138, Potassium 3.7, Chloride 108 H, Carbon Dioxide 22.0, Anion Gap 8, BUN 44 H, Creatinine 2.37 H, Estim Creat Clear Calc 19.79, Est GFR (MDRD) Af Amer 26 L, Est GFR (MDRD) Non-Af 21 L, BUN/Creatinine Ratio 18.6, Glucose 97, Calcium 8.9, Phosphorus 3.8, Triglycerides 82, Cholesterol 114, LDL Cholesterol 49, VLDL Cholesterol 16, HDL Cholesterol 49 08/10/20 06:30: Tacrolimus Pending Current Medications Acetaminophen (Acetaminophen 325 Mg Tablet) 650 mg PO Q6H PRN PRN PRN Reason: Pain Score 1-10/Temp > 100.7 F Amlodipine Besylate (Amlodipine 10 Mg Tablet) 10 mg PO DAILY [facility] Last Admin: 08/10/20 09:22 Dose: 10 mg Documented by: Atorvastatin Calcium (Atorvastatin Calcium 10 Mg Tablet) 10 mg PO QHS [facility] Last Admin: 08/09/20 21:06 Dose: 10 mg Documented by: Cholecalciferol (Cholecalciferol (Vit D3) 25 Mcg Tablet (1,000 Units)) 50 mcg PO DAILY [facility] Last Admin: 08/10/20 09:21 Dose: 50 mcg Documented by: Ferrous Sulfate (Ferrous Sulfate 325 Mg Tablet) 325 mg PO [facility] Last Admin: 08/10/20 09:22 Dose: 325 mg Documented by: Furosemide (Furosemide 40 Mg/4 Ml Vial) 40 mg IV DAILY [facility] Furosemide (Furosemide 40 Mg/4 Ml Vial) 40 mg IV X1 PRN PRN Reason: Fluid overload during PRBC tra Sodium Chloride () 500 mls @ 15 mls/hr IV PRN PRN PRN Reason: Blood Transfusion Sodium Chloride () 250 mls @ 15 mls/hr IV .[id number] PRN PRN Reason: Saline Flush Sodium Chloride () 250 mls @ 15 mls/hr IV .[id number] PRN PRN Reason: Additional IVPB Infusion Magnesium Chloride (Magnesium Chloride 64 Mg Delay Rel.Tablet) 128 mg PO DAILY [facility] Last Admin: 08/10/20 09:21 Dose: 128 mg Documented by: Melatonin (Melatonin 3 Mg Tablet) 3 mg PO QHS PRN PRN PRN Reason: INSOMNIA Metoprolol Tartrate (Metoprolol Tartrate 25 Mg Tablet) 12.5 mg PO BID [facility] Last Admin: 08/10/20 09:21 Dose: 12.5 mg Documented by: Morphine Sulfate (Morphine 2 Mg/Ml Syringe) 2 mg IV Q3H PRN PRN PRN Reason: Pain Score 6-10 Mycophenolate Mofetil (Mycophenolate Mofetil 250 Mg Capsule) 750 mg PO BID [facility] Last Admin: 08/10/20 09:23 Dose: 750 mg Documented by: Nitroglycerin (Nitroglycerin (Inpatient Use) 0.4 Mg Tab.Subl) 0.4 mg SL Q5M PRN PRN Reason: CARDIAC/CHEST PAIN Nutritional Formula (Lactose Free) (Ensure Enlive 120 Ml Liquid) 120 ml PO 4X/DAY [facility] Last Admin: 08/10/20 09:24 Dose: Not Given Documented by: Oxycodone HCl (Oxycodone 5 Mg Tablet) 5 mg PO Q4H PRN PRN PRN Reason: Pain Score 4-5 Pantoprazole Sodium (Pantoprazole Sodium 40 Mg Tablet) 40 mg PO BID [facility] Prednisone (Prednisone 5 Mg Tablet) 5 mg PO DAILYCM [facility] Last Admin: 08/10/20 09:22 Dose: 5 mg Documented by: Prochlorperazine Edisylate (Prochlorperazine 10 Mg/2 Ml Vial) 5 mg IV Q4H PRN PRN PRN Reason: Breakthrough Nausea/Vomiting Senna/Docusate Sodium (Senna/Docusate Sodium 1 Tablet) 2 tablet PO BID PRN PRN PRN Reason: Constipation Sodium Chloride (0.9% Saline Lock 10 Ml Syringe) 10 - 40 ml IV UD PRN PRN Reason: SALINE FLUSH Tacrolimus (Tacrolimus Anhydrous 1 Mg Capsule) 1 mg PO BREAKFAST [facility] Last Admin: 08/10/20 09:23 Dose: 1 mg Documented by: Tacrolimus (Tacrolimus 0.5 Mg Capsule) 0.5 mg PO DINNER [facility] Last Admin: 08/09/20 21:07 Dose: 0.5 mg Documented by: Trimethoprim/Sulfamethoxazole (Smz/Tmp Ds Tablet) 0.5 tablet PO MoWeFr@0800 [facility] Addendum: Dr. Munoz I personally examined the patient and reviewed the chart. I agree with the above. 75-year-old female sent in by her oncologist because of her anemia as well as shortness of breath was found to have heart failure exacerbation. She was started on IV Lasix and has been doing well and her breathing is improved. She did have an echo today demonstrated an EF of 60% with moderate left ventricular hypertrophy. She is chronically anemic and is seeing hematology for this issue with iron transfusions. Her stool occult was positive for blood, in June 2019 she did have a colonoscopy and an EGD which demonstrated diverticulosis and a diverticular bleed. That is likely the cause of this currently. Would recommend she follow-up with her licensed mental health professional on discharge. Inpatient E&M: [id number] [facility] L2
--- NOTE | 2020-08-10 13:31 | CM.UR ---
MARK LIU Assessment: Met Face to Face with patient for initial transition planning/care coordination assessment. MARK LIU introduced self and role at [facility]. Patient lying in bed, alert and oriented. Patient willing to participate in assessment and is able to answer all questions appropriately. Care providers, pharmacy, and demographics verified. Patient wishes to discharge home, denies need for home health at this time. Patient states she has no further needs or concerns at this time. CM to follow for discharge planning needs that may arise. PCP: Nathaniel Specialists: Cruz supervisor special services Preferred Pharmacy: [facility] Insurance: [place] Prescription Benefit: No prescription coverage but Fund does help cover cost. Living Will/HPOA: Living will only LNOK: Living Arrangements: patient lives with in a single story home with 1 step to enter. Patient states she is independent at home. Transportation: Driving service. Denies problems getting to appointments. DME/HHC: Patient states she has raised toilet, grab bars, and crutches Denies any needs at this time. States she just hopes they get this figured out. She was just in [facility] overnight on Wed to d/t low hgb. States she has been getting iron infusions and taking procrit but still experiencing symptomatic anemia. Disposition Plan: Patient to discharge home with family support and follow-up plans in place. Nelson Dodd RN, CCM.
[2020-08-10] MEDS: Furosemide 40 MG/4 ML Vial IV (14:29)
[2020-08-10 19:14] LABS: Hematocrit 30.1 % (37-47)
[2020-08-10] MEDS: Tacrolimus 0.5 MG Capsule PO (21:07)
[2020-08-10] MEDS: Pantoprazole Sodium 40 MG Tablet PO (21:08)
[2020-08-10] MEDS: Atorvastatin Calcium 10 MG Tablet PO (21:08)
[2020-08-10] MEDS: MELATONIN 3 MG TABLET PO (22:12)
[2020-08-11 02:20] VITALS: BP 150/66; PULSE 65; RESP 14; TEMP 37.4; O2SAT 96
[2020-08-11 02:59] VITALS: PULSE 69
[2020-08-11 05:48] LABS: Hematocrit 29.2 % (37-47); Hemoglobin 8.7 g/dL (12.0-15.0); Mean Corp Hgb Conc 29.8 g/dL (32-36); Mean Corpuscular Hgb 26.4 pg (27.0-32.0); Mean Corpuscular Volume 88.8 fL (81-99); Platelet Count 266 K/mm3 (150-450); RBC Distribution Width CV 14.6 % (11.6-14.6); RBC Distribution Width SD 47.6 fl (35.1-43.9); Red Blood Count 3.29 M/mm3 (4.2-5.4); White Blood Count 5.2 K/mm3 (4.4-11.0)
[2020-08-11 06:15] LABS: Anion Gap 8 (5-15); BUN 50 mg/dL (7-18); BUN/Creat Ratio 21.1 RATIO (10-20); Calcium,Total 9.1 mg/dL (8.5-10.1); Chloride 109 mmol/L (98-107); Creatinine, Serum 2.37 mg/dL (0.55-1.02); EST Glomerular Filtration Rate 21 mL/min (>60); Est Glom Filt Rate - Afr Amer 26 mL/min (>60); Estimated Creatinine Clearance 19.79 ml/min; Glucose 101 mg/dL (74-106); Potassium 3.8 mmol/L (3.5-5.1); Sodium Level 138 mmol/L (136-145)
[2020-08-11 07:00] VITALS: PULSE 67
[2020-08-11 07:21] VITALS: O2SAT 93
[2020-08-11 08:37] VITALS: BP 145/67; PULSE 67; RESP 16; TEMP 36.6; O2SAT 97
[2020-08-11] MEDS: predniSONE 5 MG Tablet PO (08:40)
[2020-08-11] MEDS: Ferrous Sulfate 325 MG Tablet PO (08:40)
[2020-08-11] MEDS: amLODIPine 10 MG Tablet PO (08:40)
[2020-08-11] MEDS: Magnesium Chloride 64 MG Delay Rel.Tablet 128 MG PO (08:40)
[2020-08-11] MEDS: Cholecalciferol (VIT D3) 25 MCG TABLET (1,000 UNITS) 50 MCG PO (08:40)
[2020-08-11 08:41] VITALS: PULSE 67
[2020-08-11] MEDS: Metoprolol Tartrate 25 MG Tablet 12.5 MG PO (08:41)
[2020-08-11] MEDS: Tacrolimus Anhydrous 1 MG Capsule PO (08:41)
[2020-08-11] MEDS: Mycophenolate Mofetil 250 MG Capsule 750 MG PO (08:41)
[2020-08-11] MEDS: Pantoprazole Sodium 40 MG Tablet PO (08:42)
[2020-08-11] MEDS: Furosemide 40 MG/4 ML Vial IV (08:50)
--- NOTE | 2020-08-11 09:50 | DCINST_ITS ---
- Discharge Diagnoses Current Active Problems: Current Active and Chronic Problems Generalized weakness (Acute) Shortness of breath (Acute) Acute on chronic diastolic heart failure (Acute) CKD stage IV (Chronic) Status post renal transplant (Acute) Acute on chronic anemia (Acute) Congestive heart failure (CHF) (Acute) Urinary tract infection (Acute) You will use the following diet at home:: Cardiac Discharge Activity: Return to Normal Activity Call your doctor if you observe: Shortness of breath, Dizziness, Fainting spells, Chest pain Additional Instructions: Recommend repeat CBC in 3 days by PCP. Allergies/Adverse Reactions: Allergies No Known Allergies Allergy (Verified 08/09/20 13:42) Medications to take at Discharge Magnesium Oxide [Mag-Ox 400] 400 mg PO DAILY 01/19/14 Mycophenolate Mofetil [Cellcept] 750 mg PO BID 01/19/14 Simvastatin [Zocor] 20 mg PO QHS 01/19/14 Amlodipine [Norvasc] 10 mg PO DAILY 04/17/20 Chlorthalidone 25 mg PO DAILY 04/17/20 Cholecalciferol (Vitamin D3) [Vitamin D3] 2,000 unit PO DAILY 04/17/20 Metoprolol Tartrate 12.5 mg PO BID 04/17/20 Prednisone 5 mg PO DAILY 04/17/20 Sulfamethoxazole/Trimethoprim [Sulfamethoxazole-Tmp Ss Tablet] 1 tab PO MOWEFR 04/17/20 Tacrolimus 1 mg PO QHS 04/17/20 Tacrolimus 2 mg PO BREAKFAST 04/17/20 Epoetin Angel [Epogen] 20,000 unit IJ TU 08/09/20 Ferrous Sulfate [Iron] 325 mg PO DAILY 08/09/20 Losartan Potassium [Cozaar] 25 mg PO DAILY 08/09/20 Primary Care Physician: Hamilton Armstrong MD [Primary Care Provider] - Please follow up with your Primary Care Physician in: 1 Week Test Results: Test results from this visit will be discussed in further detail at your follow- up appointment, if applicable. Please Follow Up With: Rodney Araya MD When: 1 Week Please Follow Up With: Megan Arroyo MD When: 1 Week Proposed Discharge Date: 08/11/20
--- NOTE | 2020-08-11 10:00 | PCM.DC.SUM ---
<Danitza Flores INK MAKER - Last Filed: 08/11/20 10:13> Discharge Date and Diagnosis - Problem List Patient Problems: Active and Suspected Problems Generalized weakness (Acute) Shortness of breath (Acute) Acute on chronic diastolic heart failure (Acute) Status post renal transplant (Acute) Acute on chronic anemia (Acute) Congestive heart failure (CHF) (Acute) Urinary tract infection (Acute) Date of Admission: 08/09/20 Date of Discharge: 08/11/20 - Primary Discharge Diagnosis Acute Problems: Active Problems 1. Acute on chronic normocytic anemia 2. Acute heart failure with preserved ejection fraction 3. Chronic kidney disease stage IV, history of renal transplant 2009 4. Elevated D-dimer 5. Hypertension 6. Hyperlipidemia 7. Gout - Secondary Discharge Diagnosis Chronic Problems: Chronic Problems CKD stage IV (Chronic) Hospital Course and Treatment Imaging Results: Diagnostic Data Chest X-Ray 08/09/20 15:08 IMPRESSION: Vascular congestion and mild CHF with bibasilar atelectasis. Electronically Signed: Enrique Daily MD at 15:32 EDT , Service support , Echocardiogram 08/10/20 05:55 Interpretation Summary Normal LV size. Moderate eccentric left ventricular hypertrophy. Left ventricular systolic function is normal. The estimated ejection fraction is 60 %. Ordering Physician: Dat Covarrubias Referring Physician: Hamilton Armstrong Performed By: Ninfa Pulliam, ELIA, RVT Operations: None Procedures: 2-D Echocardiogram Summary of Care Provided: The patient is a 75 year old F admitted 08/09/2020 due to shortness of breath and weakness. 1. Acute on chronic normocytic anemia- Patient had upper and lower scope June 2019 at outside facility which demonstrated diverticular bleed. She states she was on Coumadin for atrial fibrillation which was discontinued at that time. She follows with hematology, Dr. Arroyo for ongoing anemia and has received iron transfusions in the past. Patient also still follows with general surgery, Dr. Araya who has performed her scopes in the past. Stool for occult blood positive. Hemoglobin stable following 2 units PRBC. Recommend repeat CBC in 1 week. Follow-up with Dr. Araya in 1 week to consider repeat scopes. 2. Acute heart failure with preserved ejection fraction-chest x-ray with congestion. BNP greater than 500. Echocardiogram demonstrates an EF of 60%, moderate left ventricular hypertrophy. IV Lasix during admission. Transition to home Lasix regimen at discharge. 3. Chronic kidney disease stage IV, history of renal transplant 2009-Appears at baseline. Continue antirejection regimen. 4. Elevated D-dimer-no risk factors for DVT/PE. Suspect secondary to CKD. 5. Hypertension-stable, continue amlodipine, metoprolol. 6. Hyperlipidemia-continue statin. 7. Gout-uses as needed prednisone at home. General: Alert, Oriented x3, Cooperative HEENT: Atraumatic, PERRLA, EOMI, Normocephalic Neck: Supple, No JVD, Negative Carotid Bruits Lungs: Clear to auscultation, Diminished Cardiovascular: Regular rate, Regular Rhythm Abdomen: Bowel Sounds Present, Soft, Non Tender, Non-Distended Extremities: No clubbing, No cyanosis, No edema, Capillary Refill Less than 3 Seconds Skin: No rashes, No breakdown Musculoskeletal: No Tenderness to Palpation of Joints or Extremities Neurological: Cranial nerves II-XII grossly intact, Neuro grossly intact Psych/Mental Status: Normal Affect, Appropriate Patient seen and examined prior to discharge. Physical assessment as noted above. Patient is stable for discharge with follow up recommendations as noted above. This patient was seen by GRANT Hopper under the supervision of Dr. Munoz. Patient Problems: Active and Suspected Problems Generalized weakness (Acute) Shortness of breath (Acute) Acute on chronic diastolic heart failure (Acute) Status post renal transplant (Acute) Acute on chronic anemia (Acute) Congestive heart failure (CHF) (Acute) Urinary tract infection (Acute) - Physical Exam Vitals/I&O's: Vital Signs Temp Pulse Resp BP Pulse Ox 97.8 F 67 16 145/67 H 97 08/11/20 08:37 08/11/20 08:41 08/11/20 08:37 08/11/20 08:37 08/11/20 08:37 Oxygen Delivery Method Room Air Weight: 190 lb 4.143 oz Body Mass Index (BMI) 30.8 Intake and Output for Last 24 Hours 08/09/20 08/10/20 08/11/20 23:59 23:59 23:59 Intake Total 240 / 240 780 / 780 480 / 480 Output Total 1600 / 1600 1600 / 1600 Balance -1360 / -1360 -820 / -820 480 / 480 Microbiology Past 72 Hours 08/10/20 09:30 Stool Stool Occult Blood (EBONY) - Final Occult Blood Positive 08/09/20 14:36 Mucosa - Nose SARS-CoV-2 Antigen (Rapid) - Final Laboratory Results 08/09/20 14:36: Crossmatch See Detail 08/09/20 14:36: Crossmatch See Detail 08/10/20 19:07: Hgb 9.0 L, Hct 30.1 L 08/11/20 05:20: WBC 5.2, RBC 3.29 L, Hgb 8.7 L, Hct 29.2 L, MCV 88.8, MCH 26.4 L, MCHC 29.8 L, RDW Std Deviation 47.6 H, RDW Coeff of Rhys 14.6, Plt Count 266, MPV 10.0 08/11/20 05:20: Sodium 138, Potassium 3.8, Chloride 109 H, Carbon Dioxide 21.0, Anion Gap 8, BUN 50 H, Creatinine 2.37 H, Estim Creat Clear Calc 19.79, Est GFR (MDRD) Af Amer 26 L, Est GFR (MDRD) Non-Af 21 L, BUN/Creatinine Ratio 21.1 H, Glucose 101, Calcium 9.1 Current Medications Acetaminophen (Acetaminophen 325 Mg Tablet) 650 mg PO Q6H PRN PRN PRN Reason: Pain Score 1-10/Temp > 100.7 F Amlodipine Besylate (Amlodipine 10 Mg Tablet) 10 mg PO DAILY [facility] Last Admin: 08/11/20 08:40 Dose: 10 mg Documented by: Atorvastatin Calcium (Atorvastatin Calcium 10 Mg Tablet) 10 mg PO QHS [facility] Last Admin: 08/10/20 21:08 Dose: 10 mg Documented by: Cholecalciferol (Cholecalciferol (Vit D3) 25 Mcg Tablet (1,000 Units)) 50 mcg PO DAILY [facility] Last Admin: 08/11/20 08:40 Dose: 50 mcg Documented by: Ferrous Sulfate (Ferrous Sulfate 325 Mg Tablet) 325 mg PO DAILYCM [facility] Last Admin: 08/11/20 08:40 Dose: 325 mg Documented by: Furosemide (Furosemide 40 Mg/4 Ml Vial) 40 mg IV DAILY [facility] Last Admin: 08/11/20 08:50 Dose: 40 mg Documented by: Furosemide (Furosemide 40 Mg/4 Ml Vial) 40 mg IV X1 PRN PRN Reason: Fluid overload during PRBC tra Sodium Chloride () 500 mls @ 15 mls/hr IV PRN PRN PRN Reason: Blood Transfusion Sodium Chloride () 250 mls @ 15 mls/hr IV .[id number] PRN PRN Reason: Saline Flush Sodium Chloride () 250 mls @ 15 mls/hr IV .[id number] PRN PRN Reason: Additional IVPB Infusion Magnesium Chloride (Magnesium Chloride 64 Mg Delay Rel.Tablet) 128 mg PO DAILY [facility] Last Admin: 08/11/20 08:40 Dose: 128 mg Documented by: Melatonin (Melatonin 3 Mg Tablet) 3 mg PO QHS PRN PRN PRN Reason: INSOMNIA Last Admin: 08/10/20 22:12 Dose: 3 mg Documented by: Metoprolol Tartrate (Metoprolol Tartrate 25 Mg Tablet) 12.5 mg PO BID [facility] Last Admin: 08/11/20 08:41 Dose: 12.5 mg Documented by: Morphine Sulfate (Morphine 2 Mg/Ml Syringe) 2 mg IV Q3H PRN PRN PRN Reason: Pain Score 6-10 Mycophenolate Mofetil (Mycophenolate Mofetil 250 Mg Capsule) 750 mg PO BID [facility] Last Admin: 08/11/20 08:41 Dose: 750 mg Documented by: Nitroglycerin (Nitroglycerin (Inpatient Use) 0.4 Mg Tab.Subl) 0.4 mg SL Q5M PRN PRN Reason: CARDIAC/CHEST PAIN Nutritional Formula (Lactose Free) (Ensure Enlive 120 Ml Liquid) 120 ml PO 4X/DAY [facility] Last Admin: 08/11/20 08:47 Dose: 120 ml Documented by: Oxycodone HCl (Oxycodone 5 Mg Tablet) 5 mg PO Q4H PRN PRN PRN Reason: Pain Score 4-5 Pantoprazole Sodium (Pantoprazole Sodium 40 Mg Tablet) 40 mg PO BID [facility] Last Admin: 08/11/20 08:42 Dose: 40 mg Documented by: Prednisone (Prednisone 5 Mg Tablet) 5 mg PO DAILYCM [facility] Last Admin: 08/11/20 08:40 Dose: 5 mg Documented by: Prochlorperazine Edisylate (Prochlorperazine 10 Mg/2 Ml Vial) 5 mg IV Q4H PRN PRN PRN Reason: Breakthrough Nausea/Vomiting Senna/Docusate Sodium (Senna/Docusate Sodium 1 Tablet) 2 tablet PO BID PRN PRN PRN Reason: Constipation Sodium Chloride (0.9% Saline Lock 10 Ml Syringe) 10 - 40 ml IV UD PRN PRN Reason: SALINE FLUSH Tacrolimus (Tacrolimus Anhydrous 1 Mg Capsule) 1 mg PO BREAKFAST [facility] Last Admin: 08/11/20 08:41 Dose: 1 mg Documented by: Tacrolimus (Tacrolimus 0.5 Mg Capsule) 0.5 mg PO QHS [facility] Last Admin: 08/10/20 21:07 Dose: 0.5 mg Documented by: Trimethoprim/Sulfamethoxazole (Smz/Tmp Ds Tablet) 0.5 tablet PO MoWeFr@0800 [facility] Discharge Diet: Low fat/ Low Cholesterol Discharge Activity: Return to Normal Activity Call your doctor if you observe: Shortness of breath, Dizziness, Fainting spells, Chest pain Home Medications: Medications to take at Discharge Magnesium Oxide [Mag-Ox 400] 400 mg PO DAILY 01/19/14 Mycophenolate Mofetil [Cellcept] 750 mg PO BID 01/19/14 Simvastatin [Zocor] 20 mg PO QHS 01/19/14 Amlodipine [Norvasc] 10 mg PO DAILY 04/17/20 Chlorthalidone 25 mg PO DAILY 04/17/20 Cholecalciferol (Vitamin D3) [Vitamin D3] 2,000 unit PO DAILY 04/17/20 Metoprolol Tartrate 12.5 mg PO BID 04/17/20 Prednisone 5 mg PO DAILY 04/17/20 Sulfamethoxazole/Trimethoprim [Sulfamethoxazole-Tmp Ss Tablet] 1 tab PO MOWEFR 04/17/20 Tacrolimus 1 mg PO QHS 04/17/20 Tacrolimus 2 mg PO BREAKFAST 04/17/20 Epoetin Angel [Epogen] 20,000 unit IJ TU 08/09/20 Ferrous Sulfate [Iron] 325 mg PO DAILY 08/09/20 Losartan Potassium [Cozaar] 25 mg PO DAILY 08/09/20 Primary Care Physician: Hamilton Armstrong MD [Primary Care Provider] - Please follow up with your Primary Care Physician in: 1 Week Please Follow Up With: Rodney Araya MD When: 1 Week Please Follow Up With: Megan Arroyo MD When: 1 Week Disposition: Home Minutes spent on discharge:: 35 Patient Condition:: Stable Medical Necessity - Tobacco Use Smoking Status: Never smoker Tobacco Use: Non-smoker Meaningful Use Info Meaningful Use Diagnoses (Choose all that apply): CHF - CHF DEDRICK/ARB ordered at discharge?: Yes Documented LVEF (%): 60 <Eliecer Munoz F - Last Filed: 08/11/20 12:14> Discharge Date and Diagnosis - Primary Discharge Diagnosis Acute Problems: Active Problems Generalized weakness (Acute) Shortness of breath (Acute) Acute on chronic diastolic heart failure (Acute) Status post renal transplant (Acute) Acute on chronic anemia (Acute) Congestive heart failure (CHF) (Acute) Urinary tract infection (Acute) - Secondary Discharge Diagnosis Chronic Problems: Chronic Problems CKD stage IV (Chronic) Hospital Course and Treatment Summary of Care Provided: The patient is a 75 year old F [] - Physical Exam Vitals/I&O's: Vital Signs Temp Pulse Resp BP Pulse Ox 97.8 F 67 16 145/67 H 97 08/11/20 08:37 08/11/20 08:41 08/11/20 08:37 08/11/20 08:37 08/11/20 08:37 Oxygen Delivery Method Room Air Weight: 190 lb 4.143 oz Body Mass Index (BMI) 30.8 Intake and Output for Last 24 Hours 08/09/20 08/10/20 08/11/20 23:59 23:59 23:59 Intake Total 240 / 240 780 / 780 480 / 480 Output Total 1600 / 1600 1600 / 1600 Balance -1360 / -1360 -820 / -820 480 / 480 Microbiology Past 72 Hours 08/09/20 18:10 Urine, Clean Catch Urine Culture - Preliminary GNR lactose bar machine operator production 08/10/20 09:30 Stool Stool Occult Blood (EBONY) - Final Occult Blood Positive 08/09/20 14:36 Mucosa - Nose SARS-CoV-2 Antigen (Rapid) - Final Laboratory Results 08/09/20 14:36: Crossmatch See Detail 08/10/20 19:07: Hgb 9.0 L, Hct 30.1 L 08/11/20 05:20: WBC 5.2, RBC 3.29 L, Hgb 8.7 L, Hct 29.2 L, MCV 88.8, MCH 26.4 L, MCHC 29.8 L, RDW Std Deviation 47.6 H, RDW Coeff of Rhys 14.6, Plt Count 266, MPV 10.0 08/11/20 05:20: Sodium 138, Potassium 3.8, Chloride 109 H, Carbon Dioxide 21.0, Anion Gap 8, BUN 50 H, Creatinine 2.37 H, Estim Creat Clear Calc 19.79, Est GFR (MDRD) Af Amer 26 L, Est GFR (MDRD) Non-Af 21 L, BUN/Creatinine Ratio 21.1 H, Glucose 101, Calcium 9.1 Addendum: Dr. Munoz I personally examined the patient and reviewed the chart. I agree with the above. 75-year-old female sent in by her oncologist because of her anemia as well as shortness of breath was found to have heart failure exacerbation. She was started on IV Lasix and has been doing well and her breathing is improved. She did have an echo today demonstrated an EF of 60% with moderate left ventricular hypertrophy. She is chronically anemic and is seeing hematology for this issue with iron transfusions. Her stool occult was positive for blood, in June 2019 she did have a colonoscopy and an EGD which demonstrated diverticulosis and a diverticular bleed. That is likely the cause of this currently. Would recommend she follow-up with her computer numerical control machinist on discharge. 08/11/2020: Feels much better today, still says that she is a little bit weak but does not want to go to a detention she just wants to go home. She is breathing much better and her hemoglobin is stable. She will need to follow-up with her outpatient physical therapist as well as her computer numerical control machinist as an outpatient as she likely still has a continued diverticular bleed that may need to be addressed as an outpatient. I discussed with her and her daughter the plan for discharge and she expressed understanding of the risk benefits of going home and would like to go home today. Inpatient E&M: [id number] Disch Hosp
--- NOTE | 2020-08-12 14:54 | CASEMGMT ---
MARK LIU Discharge Follow-up Phone Call: RENETTA: [place]: 3 Call Date: 08/12/20 Discharge Date: 08/11/20 Time of Call: 1500 Duration: Admitting Diagnosis: CHF exacerbation, Acute on chronic anemia MARK LIU completed follow-up phone after recent hospitalization. Patient states she is doing well but still feels weak. Patient states she had no questions or concerns regarding discharge instructions. Patient has not made follow-up appts yet. Patient is questioning following up with Dr. Arroyo. MARK LIU encourage patient to follow-up with PCP and ask PCP if patient should follow-up Dr. Arroyo. Patient voiced understanding. Patient had no further questions or concerns at this time.
[2020-08-14 12:38] LABS: Tacrolimus (FK506) 4.6 ng/mL (2.0-20.0)
== END 2020-08-11 11:35 | disposition home or self-care (01) | DRG 291 ==
LOC: ED 17:31 → PCU 17:41
PROVIDERS: Nurse Practitioner Family; Admitting Provider Internal Medicine; Emergency Provider Emergency Medicine; PCP Family Medicine; Visit Provider Family Medicine
DX: I13.0 Hypertensive heart and chronic kidney disease with heart failure and stage 1 through stage 4 chronic kidney disease, or unspecified chronic kidney disease (principal); I50.31 Acute diastolic (congestive) heart failure; Z94.0 Kidney transplant status; N39.0 Urinary tract infection, site not specified; N18.4 Chronic kidney disease, stage 4 (severe); D64.9 Anemia, unspecified; I49.3 Ventricular premature depolarization; R79.89 Other specified abnormal findings of blood chemistry; I48.91 Unspecified atrial fibrillation; M10.9 Gout, unspecified; E78.5 Hyperlipidemia, unspecified; Z79.01 Long term (current) use of anticoagulants; Z79.899 Other long term (current) drug therapy; Z87.19 Personal history of other diseases of the digestive system
CPT/HCPCS: 36415; 71045; 80048; 80053; 80061; 80197; 81001; 82274; 83735; 83880; 84100; 84484; 85014; 85018; 85025; 85027; 85379; 85610; 85730; 86850; 86900; 86901; 86920; 86922; 87077; 87086; 87088; 87186; 87426; 93005; 93306; 97161; 97165; 97802; 99285; J7040; P9016; A4216; J1940

== ENCOUNTER 2021-08-25 16:01 | Outpatient (CLI) | payer OTHER, SELFPAY ==
[2021-08-25 16:20] LABS: CREATININE FINGERSTICK 1.8 mg/dL (0.55-1.02)
== END 2021-08-25 23:59 | disposition home or self-care (01) ==
LOC: CT 16:05
PROVIDERS: PCP Internal Medicine; Referring Provider Internal Medicine Critical Care Medicine; Visit Provider Internal Medicine Critical Care Medicine
DX: J96.11 Chronic respiratory failure with hypoxia (principal)

== ENCOUNTER 2021-08-25 16:24 | Emergency (ER) | payer OTHER, SELFPAY ==
[2021-08-25 16:25] VITALS: BP 118/65; PULSE 109; RESP 18; TEMP 36.5; O2SAT 97; BMI 29.7
--- NOTE | 2021-08-25 16:58 | EDS_ITS ---
HPI History of Present Illness Chief Complaint: Shortness of Breath Detail of Chief Complaint: Dyspnea since diagnosis of Covid May 2021 Informant: patient and spouse/S.O. Onset/Context/Timing Onset: Month(s) Context: sudden Timing: Continuous Quality: Positive for Dyspnea on exertion; Negative for Orthopnea, PND and Wheezing Current Severity: Mild Maximum Severity: Moderate Worsened by: Exertion Relieved by: Nothing Associated Symptoms Negative for cough, rhinorrhea, post nasal drip, ear pain, fever, sore throat, subjective, chills or sweats Chest Pain: Positive for None Narrative Narrative: Patient is a 76-year-old elderly woman who is a kidney recipient 2009 who was sent to the radiology suite for CT of the chest. Her creatinine was 1.8 with a GFR of 29. Her prior creatinine was 2.37 with a GFR of 21. Since there is confusion and patient and her are not good informant spoke with the pre sales technical consultant. She states they contacted Dr. Mills after doing a spot creatinine and calculated GFR and was told to go to the emergency room for further evaluation. Patient is under the impression she is to get IV fluids and have a CAT scan. Patient denies any other complaints. PE Risk Factors: Negative for Cancer, OCP + Smoking + > 35, Prior DVT or PE, Recent immobilization, Recent surgery and Recent travel Prior similar symptoms: Yes (Since diagnosed with COVID and is on oxygen by nasal cannula) Recent Illness/Hospitalization: No PFSH PFSH Home Medications magnesium oxide 400 mg PO DAILY 01/19/14 [History Last Taken 04/16/20 21:00] mycophenolate mofetil 750 mg PO BID 01/19/14 [History Last Taken 04/17/20 09:00] simvastatin 20 mg PO QHS 01/19/14 [History Last Taken 04/16/20 21:00] Tacrolimus 2 mg PO BREAKFAST 04/17/20 [History Last Taken 08/09/20] amlodipine 10 mg PO DAILY 04/17/20 [History Last Taken 08/09/20] chlorthalidone 25 mg PO DAILY 04/17/20 [History Last Taken 08/09/20] cholecalciferol (vitamin D3) 2,000 unit PO DAILY 04/17/20 [History Last Taken 08/09/20] metoprolol tartrate 12.5 mg PO BID 04/17/20 [History Last Taken 04/17/20 09:00] prednisone 5 mg PO DAILY 04/17/20 [History Last Taken 04/17/20 09:00] sulfamethoxazole-trimethoprim 1 tab PO MOWEFR 04/17/20 [History Last Taken 08/09/20] tacrolimus 1 mg PO QHS 04/17/20 [History Last Taken 08/08/20] epoetin ghada 20,000 unit IJ TU 08/09/20 [History Last Taken 08/06/20] ferrous sulfate 325 mg PO DAILY 08/09/20 [History Last Taken 08/09/20] losartan 25 mg PO DAILY 08/09/20 [History Last Taken Unknown] Allergy/AdvReac Type Severity Reaction Status Date / Time No Known Allergies Allergy Verified 08/25/21 16:30 Social History (Updated 08/25/21 @ 17:[address] Teofilo Castillo MD) household members: spouse Smoking Status: Never smoker substance use type: does not use ROS ROS ED Constitutional Constitutional ED: Denies chills, fever(s), sweats or weight loss Eyes Eyes: Denies blurry vision, change in vision or diplopia ENT ENT ED: Denies ear pain, rhinorrhea or sore throat Cardiovascular Cardiovascular: Denies chest pain, orthopnea, palpitations, paroxysmal nocturnal dyspnea or racing heartbeat Respiratory/Chest Respiratory/Chest: Reports dyspnea and dyspnea on exertion; Denies cough, orthopnea, paroxysmal nocturnal dyspnea or sputum Gastrointestinal Gastrointestinal: Denies abdominal pain, melena, nausea or vomiting Genitourinary Genitourinary ED: Denies dysuria, hematuria or urinary frequency Musculoskeletal Musculoskeletal: Denies arthralgias, myalgias or neck pain Integumentary Denies rash Neurologic Neurologic: Reports weakness; Denies paresthesias Endocrine Endocrinology: Denies polydipsia, polyphagia or polyuria Hematologic/Lymphatic Hematologic/Lymphatic: Reports anemia; Denies easy bleeding or easy bruising EXAM Physical Exam Const Vital Signs: 08/25/21 16:25 Temperature 97.7 F L Temperature Source Temporal Pulse Rate 109 H Respiratory Rate 18 Blood Pressure 118/65 Blood Pressure Mean 82 Pulse Ox 97 Oxygen Delivery Method Nasal Cannula Oxygen Flow Rate (L/min) 6 Positive well nourished, well developed and obese General Appearance ED: well developed, NAD and pallor Nutritional Appearance: obese HEENT Reports TM's clear and moist mucous membranes HEENT Narrative: Uvula midline. There is no deviation tongue with protrusion. There is no angioedema. atraumatic; Negative for tenderness Tympanic Membrane ED: Yes TM's clear Eyes PERRL and EOMs intact bilaterally General Eye ED: Yes pale conjunctiva; Negative for scleral icterus Neck no lymphadenopathy, supple, no meningeal signs and no JVD Resp normal respiratory effort and No clear to auscultation bilaterally Auscultation: rales right base and diminished lung sounds right (Lower 1/3-1/2) lower Cardio regular rate, regular rhythm, S1 normal heart sound, S2 normal heart sound and no murmurs GI non-tender, non-distended and no masses Auscultation: normoactive bowel sounds Palpation: soft Back/Spine no CVA tenderness and normal to inspection Extremity normal to inspection Extremity Narrative: Fistula distal right forearm with thrill appreciated. There is no acral cyanosis. General Extremety ED: Negative for edema or tenderness General Extremity: Negative for edema Neuro oriented x3 and CN's II-XII intact bilaterally [place] Coma Scale: document GCS findings Spontaneous Obeys Commands Oriented 15 Sensorium / Orientation: alert Gait (Neuro): normal gait Motor Exam: strength 5/5 throughout Psych mental status grossly normal Thought Process: normal thought process Skin no wounds General Skin Exam: pallor; Negative for jaundice Lesions: no lesions Rashes: no rashes MDM MDM MDM Narrative Medical decision making narrative: After speaking with the pre sales technical consultant and based on history and auscultatory findings chest x-ray and appropriate blood work was ordered since it is inappropriate this time to do a CAT scan. Patient became angry with nurse because they are under the impression that she is to get IV fluids and have a CTA. I informed her CTA with a GFR less than 30 is not appropriate. She also is anemic and has abnormal auscultatory findings on the right so there are multiple reasons why she may be short of breath. Furthermore she has been short of breath since May when diagnosed with COVID it and is on chronic oxygen. states they want to go home. Patient and want to leave. They were informed that they would have to sign out AGAINST MEDICAL ADVICE. In my professional medical opinion patient and have capacity to sign out AGAINST MEDICAL ADVICE and understand consequences which are not insignificant. These were document on the home-going discharge paperwork Discharge Plan Triage Chief Complaint: Shortness of Breath ED Provider: Teofilo Castillo Dx/Rx/DC Orders Clinical Impression: Chronic dyspnea, CKD stage IV, Kidney transplant recipient, Signs and symptoms of anemia, Symptomatic anemia, COVID-19 long hauler manifesting chronic dyspnea Instructions: ED Dyspnea Prescriptions: No Action mycophenolate mofetil 250 MG capsule 750 mg PO BID RF: 0 magnesium oxide 400 MG tablet 400 mg PO DAILY RF: 0 simvastatin 20 MG tablet 20 mg PO QHS RF: 0 chlorthalidone 25 MG tablet 25 mg PO DAILY RF: 0 sulfamethoxazole-trimethoprim 1 EACH tablet 1 tab PO MOWEFR RF: 0 prednisone 5 MG tablet 5 mg PO DAILY RF: 0 amlodipine 10 MG tablet 10 mg PO DAILY RF: 0 tacrolimus 0.5 MG capsule 1 mg PO QHS RF: 0 metoprolol tartrate 25 MG tablet 12.5 mg PO BID RF: 0 cholecalciferol (vitamin D3) 50 MCG capsule 2,000 unit PO DAILY RF: 0 Tacrolimus 0.5 MG capsule 2 mg PO BREAKFAST RF: 0 epoetin ghada 20,000 UNIT/2 ML solution 20,000 unit IJ TU RF: 0 ferrous sulfate 325 MG tablet 325 mg PO DAILY RF: 0 losartan 25 MG tablet 25 mg PO DAILY RF: 0 Primary Care Provider: Chelsie Weeks Referrals: Chelsie Weeks MD [Primary Care Provider] - As soon as possible Activity Restrictions/Additional Instructions: I have been informed by Dr. Castillo that giving fluids and order a CAT scan at this time is not appropriate without further laboratory testings and chest x-ray since there are other causes for my chronic shortness of breath. By leaving AGAINST MEDICAL ADVICE and not allowing proper evaluation and treatment treatment may be more invasive and complicated. But not allowing Dr. Castillo to perform adequate work-up I may suffer the following complications. Inability to perform activities of daily living, worsening renal failure, respiratory failure requiring invasive ventilation, prolonged hospitalization, tracheostomy and possible feeding tube, collapse which may lead to mental, physical or emotional complications. This may limit my ability to walk less than 50 feet, which I am presently able to walk before stopping. This may result in a heart attack. I understand these risks. Furthermore I understand that there are other complications that can occur and the possible complications not listed to what has been documented. Disposition Disposition: Against Medical Advice
--- NOTE | 2021-08-25 17:07 | ED.RN ---
This RN entered patients room and informed her of plan of care. Patient and patients became angry and upset with RN demanding a CT scan instead of chest x-ray. Dr Castillo notified. Dr. Castillo has informed this RN patient will be leaving AMA.
--- NOTE | 2021-08-25 17:16 | ED.RN ---
Patient continues to verbalize her anger towards this RN. Patient states there is poor communication. Patient has been given discharge paperwork and AMA paperwork.
== END 2021-08-25 17:22 | disposition left against medical advice (07) ==
PROVIDERS: Emergency Provider Emergency Medicine; PCP Internal Medicine; Visit Provider Emergency Medicine
DX: R06.00 Dyspnea, unspecified (principal); N18.4 Chronic kidney disease, stage 4 (severe); Z94.0 Kidney transplant status; D64.9 Anemia, unspecified; U09.9 Post COVID-19 condition, unspecified; Z79.899 Other long term (current) drug therapy; E66.9 Obesity, unspecified; Z53.21 Procedure and treatment not carried out due to patient leaving prior to being seen by health care provider; Z68.29 Body mass index [BMI] 29.0-29.9, adult
CPT/HCPCS: 99281